=== PATIENT | male | born 1945 | race Caucasian/White ===

== ENCOUNTER → 2024-04-03 09:19 | Outpatient (REF) | payer MEDICARE, SELFPAY ==
--- NOTE | 2024-04-01 10:13 | WATCHMAN ---
Watchman
Wathcman Procedure
Referred by:: Tanisha
Date of Referral:: 03/20/24
[id number] Score
Age in Years (65=0, 65-74=1, >/=75=2): > or = 75
Sex (Female=+1): Male
Congestive Heart Failure History (Yes=+1): No
Hypertension History (Yes=+1): Yes
Stroke/TIA/Thromboembolism History (Yes=+2): Yes
Vascular Disease History (Yes=+1): No
Diabetes Mellitus (Yes=+1): No
Score: 5
Anticoagulation Recommendations: Recommend anticoagulation (as validated in nonvalvular fib)
HASBLED Score
Hypertenstion (uncontrolled >160mmHG systolic): No
Renal disease (dialysis, transplant, Cr >2.26mg/dL or >200umol/L): No
Liver disease (cirrhosis or bilirubin >2x normal w/ AST/ALT/AP >3x normal: No
Stroke history: Yes
Prior major bleeding or predisposition to bleeding: Yes
Labile INR(unsable/high INRs,time in therapeutic range <60%): No
Age >65: Yes
Medication usage predisposing to bleeding(ASA, NSAIDS): No
Alcohol use (>/= 8 drinks/week): No
Score: 3
Risk: Alternatives to anticoagulation should be considered: Patient is at high risk for major bleeding
Electrocardiogram
Interpretation: abnormal
Heart Rate: 73
Rate: normal
Rhythm: sinus
Interval: first degree heart block
Physician Visits
Ice Skating Teacher:: Tanisha
Date of Visit:: 02/29/24
Primary Salvage Inspector Wood Parts:: Tanisha
PCP:: Anna
Oral Anticoagulation
Post procedure anticoagulation plan:: 3 month post OAC and 3 month CHARLOTTE on full dose NOAC
Plan
Plan:: 03/20/2024: Consult received from Dr. Garay.
03/24/2024: Left voicemail for patient. with contact information. He will need BMP prior to CT watchman.
03/28/2024The Lab order BASIC METABOLIC PANEL W/EGFR has been placed. Patient instructed to have blood work drawn and will call once resulted to scheduled CT scan. patient ask that his become the primary contact.
:Called and spoke to patient's . GFR 87. Scheduled CT watchman for 04/03/2024 at 0930. Reviewed instructions. Allowed for and answered questions.
== END ==
LOC: RAD 09:19
PROVIDERS: ATTENDING PHYSICIAN Internal Medicine Cardiovascular Disease; FAMILY PHYSICIAN Family Medicine
DX: I48.0 Paroxysmal atrial fibrillation (principal); I48.91 Unspecified atrial fibrillation
CPT/HCPCS: 75572; Q9967

== ENCOUNTER 2024-04-29 11:57 | Inpatient (IN) | payer MEDICARE, SELFPAY ==
[2024-04-18 11:58] VITALS: BMI 35.3
[2024-04-29] VITALS (15 sets, daily range): BP systolic 101–160; BP diastolic 65–106; BMI 36.5
[2024-04-29 08:30] LABS: ACT-LR - POC 256 Seconds (116-155)
--- NOTE | 2024-04-29 09:23 | WATCHMAN.MD ---
Watchman Implant
-
ELECTROPHYSIOLOGY/INTERVENTIONAL PROCEDURE REPORT
Date of Procedure: April 29, 2024
Assisting Physician: Jassi Garay
PROCEDURES:
1. Left atrial appendage occlusion device using 20 mm WATCHMAN FLX device
2. Intracardiac echocardiography
3. Ultrasound-guided right common femoral venous access
INDICATION: Paroxysmal atrial fibrillation warranting long-term full anticoagulation in the setting of high risk for bleeding,,[id number] 5, HASBLED 3
ACCESS: Right common femoral vein, 16Fr sheath and 9Fr. sheaths, under US guidance using micropunture kit.
HEMODYNAMICS : (mmHg)
LA Pressure: 16
PROCEDURE REPORT:
After informed consent and patient safety 'Timeout' the patient was intubated and sedated by the anesthesiology service. Under ultrasound guidance, the right femoral vein was accessed by Dr. Jassi Garay twice for transseptal puncture and
intracardiac ultrasound, respectively. Concomitant transesophageal echocardiogram was performed by Dr. Yordan La
Baseline intracardiac ultrasound demonstrated no pericardial effusion and baseline CHARLOTTE images revealed a trace pericardial effusion.
After ruling out a left atrial appendage thrombus, the patient was heparinized for an ACT between 350-400 seconds and under CHARLOTTE and intracardiac ultrasound guidance transseptal puncture was performed by Dr. Talisha Schwartz using the [employer]
Bayside trans-septal system in a inferior position on the inferior-superior axis and a anterior position on the anterior-posterior axis. Lleft atrial pressure was 16 millimeters mercury.
Once transseptal puncture was performed over the Bayside wire parked in the body of the left atrium, the watchman access double curve sheath was advanced into the left atrium. A 6 Ukrainian pigtail catheter was placed into the left atrial appendage and
an appendage gram was performed using intravenous contrast dye demonstrating a chicken type anatomy that was suitable likely for a 20 mm WATCHMAN FLX device.
After appropriately prepping the device, Dr. Talisha Schwartz successfully deployed a 20 mm WATCHMAN FLX device. Device showed excellent positioning with no leaks post device deployment. 10 to 20 % compression was noted in the device after deployment.
A 'tug-test' was performed demonstrating stability of the device. Given PASS criteria were met, the device was then released successfully by Dr. Talisha Schwartz.
Post procedure, CHARLOTTE imaging demonstrated no new or worse pericardial effusion. Sheaths and catheters were removed from the left atrium and heparin was reversed using protamine. Catheters removed from the femoral veins with [id number] suture
applied. The patient tolerated the procedure well.
Closure Device: Figure of 8 suture
CONCLUSIONS
1. Successful deployment of 20 mm WATCHMAN FLX device under CHARLOTTE and ICE guidance.
RECOMMENDATIONS
1. Plan for daily Eliquis 5 mg twice daily along with daily baby aspirin 81 mg for the next 3 months.
2. 90-day CHARLOTTE post procedure to assess stability of device and rule out any soledad-device leaks.
3. Figure of 8 suture removal prior to discharge.
Maintain current anticoagulation regimen of Eliquis 5 mg twice daily as well as aspirin 81 mg daily after watchman implantation and then reassess at the 3-month CHARLOTTE. If at that point the device is well-seated ,no significant leaks and no device
related thrombus is observed we can stop Eliquis and maintain aspirin 81 mg daily
At post procedure CHARLOTTE leaks > 5mm are significant and require chronic full anticoagulation or consideration for leak closure. Soledad-device leaks between 3 and 5 mm may also carry an increased risk. These patients will need individualized risk
assessment and discussion with Watchman team. Leaks < 3 mm are generally considered non-significant. With leak of any size suggestion is to check CHARLOTTE 12 mo out from implant.
Talisha Schwartz MD, [facility], [facility]
--- NOTE | 2024-04-29 09:50 | ITS.CL.PN ---
Parts Identification Technician - Procedure Note
Procedure
Procedure Note:
Watchman implantation report
Date: April 30, 2024
History: Prior history of thromboembolic and bleeding events with history of atrial fibrillation
Implant report:
sanding line operator device implanter: Dr. Schwartz
Transseptal resaw machine operator: Tanisha
After informed consent and patient safety timeout the patient was sedated by the anesthesiology service. This was performed under general anesthesia. Direct ultrasound guidance in the right femoral vein with an 8 Italian and 9 Italian sheath.
Intracardiac ultrasound was brought to the right atrium for imaging for transseptal there was no pericardial effusion pre and post procedure. CHARLOTTE was performed concomitantly to assess compression of the device.
I obtained femoral venous access and brought over a pigtail wire the watchman sheath into the right atrium which was lowered into the interatrial fossa and a low anterior crossing was performed into the left atrium over the RF wire and watchman
sheath. The pigtail wire was exchanged for a pigtail catheter which was placed into the left atrial appendage and dye injection was performed. This demonstrated an 11 to 12 mm ostium. As such we selected a 20 mm device which was delivered with 10
to 20% compression meeting Pass criteria with the device being delivered by Dr. Schwartz. Groin access and transseptal puncture was performed by myself. Ostial position, tug test did not move the device, 10 to 20% compression and dye injection
demonstrating no leak and as such meeting Pass criteria the device was delivered and sheaths and catheters were withdrawn into the right atrium. Heparin was given for an ACT greater than 300 seconds and 30 mg of protamine was given at the end of
the procedure. Patient tolerated the procedure well and a [id number] suture to the right femoral vein.
Recommendations:
20 mm Watchman device.
3 months of Eliquis 5 mg p.o. twice daily and then 3-month CHARLOTTE.
Consider same-day discharge
--- NOTE | 2024-04-29 13:08 | W.DS.TRANS ---
DC Summary - Planner Internship
-
Discharge Instructions:
Discharge Diagnosis/Procedures AFib, s/p watchman device implant
Driving Restrictions No driving for 24 hours
Others Tests 3 month follow up CHARLOTTE has been scheduled for you
at [facility] on 07/31/2024 with
Ariel. You will receive a call the day before
with arrival time. Pre-admission testing has
been scheduled for you on 07/24/2024 at 10am -
ground floor of the [facility].
Instructions:
Stand-Alone Forms: DC Instructions- Cath/EP Lab
Changes to Home Medications: No
Discharge Medications:
DC Medications w/original date entered in [employer]
nitroglycerin 0.4 mg sublingual tablet 0.4 mg sublingual [id number] PRN chest pain ##25 06/30/16
metoprolol succinate 25 mg tablet,extended release 24 hr 25 mg PO DAILY Blood pressure ##0 10/13/17
tamsulosin 0.4 mg capsule 0.4 mg PO HS Urinary issue 01/23/18
apixaban 5 mg tablet (Eliquis) 5 mg PO BID ##1 11/25/19
aspirin 81 mg tablet,delayed release 81 mg PO DAILY 11/25/19
losartan 50 mg tablet 50 mg PO DAILY #90 tabs 11/25/19
hydrochlorothiazide 12.5 mg tablet 12.5 mg PO DAILY 04/16/24
multivitamin 1 tab PO DAILY 04/16/24
omega 1-vmc-wmu-fish oil 1,000 mg (120 mg-180 mg) capsule (Fish Oil) 2 cap PO DAILY 04/16/24
atorvastatin 40 mg tablet 40 mg PO HS 04/29/24
Home Medication Changes
Pending Results: No
--- NOTE | 2024-04-29 13:13 | W.PN.UPDATE ---
Update Note
Progress Note Update
Pt seen post Watchman device implant. Right groin site without ht/bleeding, non tender. OOB ambulating. Post EKG NSR 75 w/1st deg AVB as before, no acute changes. Resume eliquis tonight at usual time, continue other meds as before. CHARLOTTE in 3 months
as scheduled. Followup at [facility] office w/BILLING DEPARTMENT SUPERVISOR as scheduled. Home today if groin site/tele remain stable.
== END 2024-04-29 14:00 | disposition home or self-care (01) | DRG 274 ==
LOC: CATH-IN 11:57
PROVIDERS: Internal Medicine Interventional Cardiology; ADMITTING PHYSICIAN Internal Medicine Cardiovascular Disease; FAMILY PHYSICIAN Family Medicine
PROC: 02L73DK Occlusion of Left Atrial Appendage with Intraluminal Device, Percutaneous Approach (ICD-10-PCS; 2024-04-29)
PROC: B24CZZ4 Ultrasonography of Pericardium, Transesophageal (ICD-10-PCS; 2024-04-29)
DX: I48.0 Paroxysmal atrial fibrillation (principal); I69.351 Hemiplegia and hemiparesis following cerebral infarction affecting right dominant side; I25.10 Atherosclerotic heart disease of native coronary artery without angina pectoris; I10 Essential (primary) hypertension; G47.33 Obstructive sleep apnea (adult) (pediatric); E78.5 Hyperlipidemia, unspecified; K21.9 Gastro-esophageal reflux disease without esophagitis; N40.0 Benign prostatic hyperplasia without lower urinary tract symptoms; I69.398 Other sequelae of cerebral infarction; R26.89 Other abnormalities of gait and mobility; H35.30 Unspecified macular degeneration; E66.9 Obesity, unspecified; Z68.35 Body mass index [BMI] 35.0-35.9, adult; Z95.5 Presence of coronary angioplasty implant and graft; Z96.643 Presence of artificial hip joint, bilateral; Z87.891 Personal history of nicotine dependence; Z79.01 Long term (current) use of anticoagulants; Z79.82 Long term (current) use of aspirin; Z79.899 Other long term (current) drug therapy
CPT/HCPCS: 33340; 85347; 86900; 86901; 93005; 93355; C1759; C1892; C1894

== ENCOUNTER → 2024-05-07 10:03 | Outpatient (REF) | payer MEDICARE, SELFPAY | LOC: RAD 10:03 | PROVIDERS: ATTENDING PHYSICIAN Internal Medicine Cardiovascular Disease; FAMILY PHYSICIAN Family Medicine | DX: R10.31 Right lower quadrant pain (principal) | CPT/HCPCS: 93926 ==

== ENCOUNTER 2024-05-12 20:37 | Inpatient (IN) | payer MEDICARE, SELFPAY ==
[2024-05-12] VITALS (7 sets, daily range): BP systolic 121–150; BP diastolic 64–109; BMI 35.0
[2024-05-12 16:20] LABS: % Basophils 0.6 % (0-2); % Eosinophils 1.3 % (0-6); % Immature Granulocytes 0.6 % (0-0.5); % Lymphocytes 11.1 % (20.5-51.1); % Monocytes 12.9 % (1.7-9.3); % Neutrophils 73.5 % (42.2-75.2); Absolute Eosinophils 0.1 10^3/uL (0-0.7); Absolute Lymphocytes 0.8 10^3/uL (1.2-3.4); Absolute Monocytes 0.9 10^3/uL (0.1-0.6); Absolute Neutrophils 5.3 10^3/uL (1.4-6.5); Mean Corp Hgb Conc. 33.3 g/dL (33.0-37.0); Mean Corpuscular Hgb 32.7 pg (27.0-31.0); Mean Platelet Volume 9.5 fL (7.4-10.4); Nucleated Red Blood Cells % 0 % (-); Platelet Count 221 10^3/uL (130-400); Red Cell Dist. Width 13.9 % (11.5-14.5); White Blood Cell Count 7.2 10^3/uL (4.8-10.8)
[2024-05-12 16:33] LABS: ALT (SGPT) 28 U/L (0-50); AST (SGOT) 33 U/L (17-59); Albumin 4.7 g/dl (3.5-5.0); Alkaline Phosphatase 78 U/L (38-126); Blood Urea Nitrogen 31 mg/dl (9-20); Calcium 9.6 mg/dl (8.4-10.2); Carbon Dioxide 28 mmol/L (22-30); Chloride 97 mmol/L (98-107); Glucose 106 mg/dl (70-99); Potassium 4.1 mmol/L (3.5-5.1); Sodium 136 mmol/L (135-145); Total Bilirubin 0.8 mg/dl (0.2-1.3); Total Protein 7.3 g/dl (6.3-8.2); eGFR > 60.00
--- NOTE | 2024-05-12 19:33 | ED.GENMED ---
History of Present Illness
General
Chief Complaint: Skin Problem
Source: patient and spouse
Exam Limitations: none
Time Seen by Provider: 05/12/24 18:40
History of Present Illness
History of Present Illness:
Patient with a Watchman procedure done April 29. 3 to 4 days ago started complaining of pain in the right groin. Was seen by cardiology last week. Had an ultrasound that was unremarkable. has noticed a rash to the right side the last 2
to 3 days. 2 days ago started having confusion. Tried to pour coffee into a creamer cup was confused at the store. Was answering questions inappropriately. Seems this is improved slightly in the last 2 days. Patient was unaware of these issues
Past History
Past History
ED Past Medical History: CVA, GERD, HTN, Hypercholesterolemia, NC ( X 2) and Other (UTI,)
ED Past Surgical History: Appendectomy and Cardiac (Stent X 1)
Social History
Tobacco: Former smoker
Alcohol: None
Personal:
Living: with family
Employment: Employed
Review of Systems
Review of Systems
All Other Systems: Not applicable
Constitutional: Denies fever
Cardiac: Reports no symptoms
ABD/GI: Reports no symptoms
Phy Exam
Physical Exam
Physical Exam:
GENERAL: Alert and oriented x 2 in no apparent distress
EYE: Orbits normal.
NECK: Supple, nontender. No Kernig's or Brezinski
ENT: Pharynx without erythema
CARDIAC: Regular rate and rhythm without any obvious murmurs.
LUNGS: Clear breath sounds,normal
ABDOMEN: Soft, without focal tenderness or distention. Elevated BMI
NEUROLOGICAL: Alert and oriented , grossly non-focal
SKIN: Warm and dry, shingles rash right groin rating to the right flank and back. Areas of ecchymosis to the right groin fine maculopapular rash to the upper left chest wall
MUSCULOSKELETAL: No edema,no deformity.Good color
PSYCH: Normal and appropriate interaction.
Course
Orders/Labs/Results
Orders:
Orders
05/12/24 15:54
Electrocardiogram (*1) Urgent
Reason for Study: Fatigue / Weakness
EKG- Treatment ONCE
05/12/24 16:10
Complete Blood Count/With Diff Urgent
Comprehensive Metabolic Panel Urgent
05/12/24 18:54
CT Head W/o Iv Contrast Urgent
Comment:
Reason For Exam: Confusion/anticoagulated
IV Insert/Care/Rem.- Treatment PRN
05/12/24 20:04
Acyclovir [Zovirax Injection] 1,000 mg 0.9% Sodium Chloride 250 ml [Nss] 250 ml IV NOW
05/12/24 20:07
Admit/Transfer Patient As Directed
Co-Sign Provider:
Level of Care: Inpatient admission
Assign to:: Medical/Surgical
Physician / Group: hospitalist
Diagnosis: disseminated zoster
Reason for Hospitalization: disseminated zoster
Expected length of stay greater than two midnights?: Yes
ELOS- Estimated Length of Stay in days: 2
I certify the patient meets the requirements for IP care: Yes
05/12/24 20:08
PRN Pain Medication Management As Directed
May give lesser potent ordered pain med per pt: Yes
preference::
Protocol:: Medication orders for pain may be administered in a
manner that supports deferring to patient preference
when the pt is:
- Requesting an ordered lesser potent pain medication.
Least to most potent pain medications are defined
as: acetaminophen < NSAID < tramadol < opioids
(morphine, oxycodone, hydromorphone).
- Requesting a lesser dose of the same medication IF
ORDERED.
- Requesting a less intrusive route of administration
if both routes are prescribed by the provider (PO <
IV).
05/12/24 20:09
Code Status As Directed
Resuscitation Status: Full Code
Abnormal Lab Results
05/12/24
16:10
MCV 98.0 H fL
(80.0-94.0)
MCH 32.7 H pg
(27.0-31.0)
Absolute Lymphs (auto) 0.8 L 10^3/uL
(1.2-3.4)
Absolute Monos (auto) 0.9 H 10^3/uL
(0.1-0.6)
Immature Gran % 0.6 H %
(0-0.5)
Lymphocytes % 11.1 L %
(20.5-51.1)
Monocytes % 12.9 H %
(1.7-9.3)
Chloride 97 L mmol/L
(98-107)
BUN 31 H mg/dl
(9-20)
Glucose 106 H mg/dl
(70-99)
05/12/24 16:10
05/12/24 16:10
Vital Signs
Initial and Last Documented VS:
Initial Vital Signs
Temp Pulse Resp BP Pulse Ox
98.3 F 88 16 135/78 98
05/12/24 15:50 05/12/24 15:50 05/12/24 15:50 05/12/24 15:50 05/12/24 15:50
Last Documented Vital Signs
Temp Pulse Resp BP Pulse Ox
99.0 F 86 17 130/78 89
05/12/24 18:20 05/12/24 22:00 05/12/24 22:00 05/12/24 22:00 05/12/24 22:00
*Radiology
Radiology exam reviewed: radiology read reviewed (neg)
*Critical Care Note
Total Time (30-74mins, 75-104mins- exclusive of procedures): Not Applicable
ED Attending Note
-
Portions of this chart may have been created with voice recognition software.� Occasional wrong word or��sound alike� substitutions may have occurred due to the inherent limitations of voice recognition software.
Discharge Plan
Departure
Patient Disposition: Admit
Date of Disposition: 05/12/24
Time of Disposition: 19:40
Presentation/result/management discussed w/ accepting MD/DO: Hospitalist
Discharge Problem:
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
Interventions
Interventions:
*Risk Screen - Suicide Last Done: 05/12/24 15:50
*Neglect/Abuse Screening Last Done: 05/12/24 15:50
ED-Skin Assessment Last Done: 05/12/24 21:02
--- NOTE | 2024-05-12 19:58 | HPS.HSE ---
Family Physician
-
Family Physician: Johnnie Castillo
Chief Complaint
-
Rash and confusion
History of Present Illness
This is a 78-year-old male with past medical history significant for CAD status post stenting, proximal atrial fibrillation on anticoagulation was recently status post a Watchman procedure April 29, sleep apnea not on CPAP, hyperlipidemia, BPH
and GERD presenting to the emergency department with confusion and a rash.
Patient was doing well after his Watchman procedure on April 29. On Sunday 3 days ago spouse noted confusion. Patient was unable to manage of pouring his drink. He was confused about where he was. He was agitated. He was slightly combative
with spouse. He was not febrile. He had no cough or chills. Spouse reported that the confusion continued until Sunday. He did appear to start improving since Sunday. The patient reported that he started having a rash in the groin/inguinal
area as well as stated lower abdomen on the right side on Sunday. The rash has continued to spread since then. He has remained without fevers. His confusion has improved slightly but still has not returned to baseline. They denied any urinary
symptoms. Denies any new medications.
In the emergency department he was afebrile, blood pressure was 136/100 with a pulse of 81 satting 93%. CBC was unremarkable. Electrolytes BUN and creatinine were also unremarkable. ECG showed a normal sinus rhythm at a rate of 85. CT of the
head shows no acute intracranial process.
Medical History
Past Medical History
Past Medical History: Reports Arrhythmia (Paroxysmal atrial fibrillation on anticoagulation, status post watchman on April 29, 2024), CAD (Status post stent), GERD, HTN, Hypercholesterolemia and Other (Morbid obesity, GIOVANNA not compliant with CPAP)
Past Surgical History: Reports Appendectomy, Orthopedic (Right total hip arthroplasty, right L4-5, L5-S1 IAF JI, left hip arthroplasty), Tonsilectomy and Other (Hernia repair)
Social History
Tobacco: Non-smoker
Alcohol: None
Drug: None
Personal:
Living: With Family
Employment: Retired
Family History
Family History: Not pertinent
Allergies / Home Medications
Allergies reflects when Allergies were last updated in [employer].
Home Medications with original date entered in [employer]
Allergy/Medication List:
Allergies
Allergy/AdvReac Type Severity Reaction Status Date / Time
procaine Allergy Hives A Verified 05/12/24 15:54
TEENAGER
Home Medications
nitroglycerin 0.4 mg sublingual tablet 0.4 mg sublingual [id number] PRN chest pain ##25 06/30/16
metoprolol succinate 25 mg tablet,extended release 24 hr 25 mg PO DAILY Blood pressure ##0 10/13/17
tamsulosin 0.4 mg capsule 0.4 mg PO HS Urinary issue 01/23/18
apixaban 5 mg tablet (Eliquis) 5 mg PO BID ##1 11/25/19
aspirin 81 mg tablet,delayed release 81 mg PO DAILY 11/25/19
losartan 50 mg tablet 50 mg PO DAILY #90 tabs 11/25/19
hydrochlorothiazide 12.5 mg tablet 12.5 mg PO DAILY 04/16/24
multivitamin 1 tab PO DAILY 04/16/24
omega 4-mof-bno-fish oil 1,000 mg (120 mg-180 mg) capsule (Fish Oil) 2 cap PO DAILY 04/16/24
atorvastatin 40 mg tablet 40 mg PO HS 04/29/24
Review of Systems
-
History Source: Patient and Family
Constitutional: Reports No Symptoms
EENT: Reports No Symptoms
Respiratory: Reports No Symptoms
Cardiac: Reports No Symptoms
Abdomen/GI: Reports No Symptoms
: Reports No Symptoms
Musculoskeletal: Reports No Symptoms
Skin: Reports Rash
Neurological: Reports No Symptoms
Endocrine: Reports No Symptoms
Hematologic/Lymphatic: Reports No Symptoms
Psych: Reports No Symptoms
Physical Exam
Vital Signs
Vital Signs
Temp Pulse Resp BP Pulse Ox
99.0 F 81 22 136/109 95
05/12/24 18:20 05/12/24 19:00 05/12/24 19:00 05/12/24 19:00 05/12/24 19:00
Physical Exam
General: Well Developed, Well Nourished and No Apparent Distress
HEENT: NormoCephalic, Anicteric, Moist mucous membranes, Atraumatic and PERRLA
Respiratory: Clear
Cardiac: S1/S2 and Regular Rhythm
Breast: Deferred by me
GI: Soft, Non Tender, Normal Bowel Sounds, Distended and No Hernias
Rectal: Deferred by Provider
Genito-urinary: Deferred by me
Musculoskeletal: No Clubbing, No Cyanosis and No Edema
Skin: Warm and Rash (varicella rash with vessicles on erythematous base in a dermatomal distribution on the lower abdomen/pelvis on the right side moving to the flank and back. Not currently tender. )
Neuro: AO x 3, No Motor Deficits and Nonfocal/grossly intact
Hematologic/Lymphatic: No Lymphadenopathy
Psych: Calm
Laboratory Results
-
05/12/24 16:10
05/12/24 16:10
Laboratory Results
Total Bilirubin 0.8 mg/dl (0.2-1.3) 05/12/24 16:10
AST 33 U/L (17-59) 05/12/24 16:10
ALT 28 U/L (0-50) 05/12/24 16:10
Alkaline Phosphatase 78 U/L (38-126) 05/12/24 16:10
Troponin I Cancelled 05/12/24 19:23
Data Reviewed
-
CT Scan: Report Reviewed by me
Medical Tests (Nuc Med, Echo, EKG etc): Image Personally Visualized and interpreted
Lab Data: Labs Reviewed by me
Old Records: Reviewed
Impression/Plan
-
IMPRESSION:
78-year-old history of CAD, hypertension, proximal atrial fibrillation was recently status post Watchman procedure presents to the emergency department in the setting of confusion and development of dermatomal rash consistent with varicella-zoster.
Patient is hemodynamically stable. Continues to have mild confusion and there is concern remains for disseminated zoster. Labs unremarkable and patient is otherwise well-appearing. CT of the head is negative. UA pending.
PLAN:
1. Varicella Zoster - Disseminated zoster
- admit to med/surg
- renal function normal, will continue with acyclovir 10mg/kg q8h
- rash is very classic, no indication for pcr
- on eliquis, would hold off on LP at this time, hold eliquis tonight and am pending repeat eval for possible LP
- ID consulted and aware.
2. PAFIB -
- s/p watchman
- continue metoprolol succinate daily
3. CAD
- aspirin daily
- statin
- bp control with losartan
4. GIOVANNA
- no cpap, oxygen hs
continue tamsulosin for bph, u/a pending
DVT PPX - on apixaban
Code status - Full Code (was DNR per living will but changed mind)
[2024-05-12] MEDS: ZOVIRAX INJECTION 270 MG IV (20:40)
[2024-05-13] VITALS: BP 129/71
[2024-05-13] MEDS: FLOMAX 0.4 MG PO ×2 (00:07→20:28)
[2024-05-13] MEDS: LIPITOR 40 MG PO ×2 (00:07→20:28)
--- NOTE | 2024-05-13 01:53 | PTCARENOTE ---
Pt transferred to on 05/12/24 around 23:30. Pt AAOx3 but forgetful, Pt took few steps from stretcher to bed with SPC. PT on airborne precautions and placed on bed alarm. Pt is restless, VSS and pt oriented to room. Pt stated he was hungry and ate
100% of lunch box. Safety measures in place, call moran within reach.
[2024-05-13] MEDS: ZOVIRAX INJECTION 270 MG IV ×3 (03:24→20:27)
[2024-05-13 07:00] VITALS: BP 129/75
[2024-05-13 08:08] LABS: Hematocrit 41.4 % (39.0-52.0); Mean Corp Hgb Conc. 33.8 g/dL (33.0-37.0); Mean Corpuscular Volume 97.6 fL (80.0-94.0); Mean Platelet Volume 10.1 fL (7.4-10.4); Platelet Count 212 10^3/uL (130-400); Red Blood Cell Count 4.24 10^6/uL (4.70-6.10); Red Cell Dist. Width 13.9 % (11.5-14.5); White Blood Cell Count 6.4 10^3/uL (4.8-10.8)
[2024-05-13 08:40] LABS: Blood Urea Nitrogen 26 mg/dl (9-20); Calcium 8.4 mg/dl (8.4-10.2); Carbon Dioxide 27 mmol/L (22-30); Chloride 100 mmol/L (98-107); Estimated Creatinine Clearance 88 ml/min; Glucose 118 mg/dl (70-99); Potassium 3.7 mmol/L (3.5-5.1); Sodium 132 mmol/L (135-145); eGFR > 60.00
[2024-05-13] MEDS: TOPROL XL 25 MG PO (09:38)
[2024-05-13] MEDS: ASPIR LOW (ENTERIC COATED) 81 MG PO (09:39)
[2024-05-13] MEDS: ORETIC 12.5 MG PO (09:41)
[2024-05-13] MEDS: COZAAR 50 MG PO (09:41)
--- NOTE | 2024-05-13 09:49 | W.PN.HOSP.TC ---
Today's Communication/Plan
-
mri brain w/o contrast
nih scale shift change
Continue to anti-viral therapy
Assessment / Plan
Assessment / Plan
1. Varicella Zoster
- admit to med/surg
- renal function normal, will continue with acyclovir 10mg/kg q8h
- On exam on right lower abdomen tracking along T11-T12 dermatomal region
- ID consulted and aware.
2. Parox afib
- s/p watchman
- continue metoprolol succinate daily
3. TME
-Possibly with active viral infection
-MRI brain without contrast ordered
-CT head without any acute abnormality
-Avoid any sedating medication
3. CAD
-Continue aspirin/statin
4. GIOVANNA
- no cpap, oxygen hs
5. BPH
- maintain on flomax
6. History of CVA
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
DVT PPX - on apixaban
Total time spent : 52 misn
Anticipated Discharge: 24 - 48 hours
Subjective/Interval History
-
Date of Service: May 13, 2024
Resting comfortably in bed
Afebrile overnight
Objective Data
-
Labs:
Laboratory Results
05/13/24
07:33
WBC 6.4
Hgb 14.0
Hct 41.4
Plt Count 212
Sodium 132 L
Potassium 3.7
Chloride 100
Carbon Dioxide 27
BUN 26 H
Creatinine 0.8
Glucose 118 H
Calcium 8.4
Vital Signs:
Vital Signs
Temp Pulse Resp BP Pulse Ox
99.7 F 79 20 129/75 94
05/13/24 07:00 05/13/24 07:00 05/13/24 07:00 05/13/24 07:00 05/13/24 07:00
I&O
05/12/24 05/13/24 05/14/24
06:59 06:59 06:59
Intake Total 480 / 480
Output Total 400 / 400
Balance 80 / 80
Review of Systems
-
Respiratory: Reports No Symptoms
Cardiac: Reports No Symptoms
Abdomen/GI: Reports No Symptoms
Physical Exam
-
General: No Apparent Distress and Comfortable
HEENT: Negative Oxygen
Respiratory: Clear to Auscultation
Cardiac: Regular Rhythm and S1/S2; Negative Murmur or Rub
GI: Soft, Nontender and Other (Right lower abdominal quadrant vesicular rash extending to midline)
Musculoskeletal: No Edema
Neuro: Awake, Alert, Oriented, No Motor Deficits and Nonfocal/Grossly Intact
Psych: Calm
[2024-05-13] MEDS: FLUSH (NSS) 1 FLUSH IV (12:35)
--- NOTE | 2024-05-13 14:05 | CON.ID ---
Consultation
-
Date/Time Consultation Requested: May 12, 2024 2316
Date/Time Consultation Performed: May 13, 2024 1400
Requesting Provider: Dr. Wayne Saavedra
Performing Provider: Dr. Annmarie Rebollar
Reason for Consultation: Disseminated Zoster
Chief Complaint / Past History
Chief Complaint
Confusion
History of Present Illness
History obtained from the patient as well as from his at bedside. He is a 78-year-old male with history of CVA, CAD, atrial fibrillation status post recent Watchman device placement on April 29, 2024 who presented to the ER last night due
to confusion and rash. Per , patient was very confused on Sunday. He was not oriented to place or time. He was somewhat agitated. On Sunday lesions noted on his right groin. Per he had bruises from the right groin to his back after
the Watchman procedure. The rash is on the same location. She also noted new spots on his upper chest. No fever. In ED, patient was too agitated for lumbar puncture. He was started on empiric IV acyclovir for disseminated zoster. Per
patient was confused this morning. However his mental status has improved this afternoon. Patient denies headaches. No neck stiffness. No fever or chills. Patient is not up-to-date with the shingles vaccine.
Past History
Additional Past Medical History:
CVA with right side weakness
HTN
CAD s/p stent
ISchemic cardiomyopathy
Afib s/p Watchman device 04/29/24
BPH
HLD
OA
Macular generation
GIOVANNA noncompliant with CPAP
Nephrolithiasis
Additional Past Surgical History:
R WALTER
L WALTER
Appendectomy
Spine fusion
Hernia repair
Allergy History:
procaine Allergy (Verified 05/12/24 15:54)
Hives A TEENAGER
Medications Reviewed: Yes
Current Antibiotics:
Acyclovir 1g IV q8
Social History
Tobacco: Non-Smoker
Alcohol: None
Drug: None
Personal:
Living: With Family
Family History
Family History: Not Pertinent
Review of Systems
Review of Systems
General: Negative Fever, Chills or Change in Appetite
HEENT: Negative Headache or Pharyngitis
Cardiovascular: Negative Chest Pain
Respiratory: Negative Dyspnea or Cough
Gasteroenterology: Negative Nausea, Vomiting or Diarrhea
Genital / Urological: Negative Dysuria
Endocrine: Weakness
Skin / Hair / Nails: Rash
Neurological: Negative Dizziness
All systems: All other systems were reviewed and were negative
Vital Signs
Temp Pulse Resp BP Pulse Ox
99.7 F 79 20 129/75 94
05/13/24 07:00 05/13/24 07:00 05/13/24 07:00 05/13/24 07:00 05/13/24 07:00
Physical Exam
Physical Exam
Constitutional: No Acute Distress, Comfortable and Obese
Eyes: No Conjunctival Hemorrhage and Sclera Anicteric
Cardiovascular: Regular Rate and S1/S2
Pulmonary: Clear
Gastrointestinal: Soft, Non Tender, Non Distended and Normal Bowel Sounds
Extremities: Negative Edema
Skin: Rash (Clusters of vesicular lesions from lower right midabdomen across (including groin) to lower black. Several scattered papules across chest, left shoulder, and left neck. )
05/13/24 Brain MRI: No acute intracranial abnormality. Chronic findings, as detailed above.
Lab / Diagnostic Study Results
05/13/24 07:33
05/13/24 07:33
Abs Immat Gran (auto) 0.0 10^3/uL (0-0.05) 05/12/24 16:10
Absolute Neuts (auto) 5.3 10^3/uL (1.4-6.5) 05/12/24 16:10
Absolute Lymphs (auto) 0.8 10^3/uL (1.2-3.4) L 05/12/24 16:10
Absolute Monos (auto) 0.9 10^3/uL (0.1-0.6) H 05/12/24 16:10
Absolute Basos (auto) 0.0 10^3/uL (0-0.2) 05/12/24 16:10
Immature Gran % 0.6 % (0-0.5) H 05/12/24 16:10
Neutrophils % 73.5 % (42.2-75.2) 05/12/24 16:10
Lymphocytes % 11.1 % (20.5-51.1) L 05/12/24 16:10
Monocytes % 12.9 % (1.7-9.3) H 05/12/24 16:10
Eosinophils % 1.3 % (0-6) 05/12/24 16:10
Basophils % 0.6 % (0-2) 05/12/24 16:10
Assessment / Plan
# Disseminated herpes zoster: Right T12/L1 dermatome with lesions on upper chest, left shoulder
# Encephalopathy improving
# Afib s/p Watchman, on Eliquis
- Unvaccinated against Zoster.
- Eliquis on hold. Recommend LP to rule out VZV encephalitis
- Continue IV acyclovir. If no VZV encephalitis ruled out, eventual transition to po antiviral.
- Continue airborne isolation.
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
CVA with right side weakness
HTN
CAD s/p stent
ISchemic cardiomyopathy
Afib s/p Watchman device 04/29/24
BPH
HLD
OA
Macular generation
GIOVANNA noncompliant with CPAP
Nephrolithiasis
Care Review
Plan reviewed with: Physician (Dr. Mark Choi)
[2024-05-13 15:00] VITALS: BP 138/84
--- NOTE | 2024-05-13 15:47 | CM ---
CM reviewed chart, patient on airborne precautions. Patient seen bedside, initial assessment completed. Patient resides with his in a split level home, no steps to enter. Patient has a cane if needed, denies VN or SNF history. Patient PCP
Johnnie Castillo, pharmacy [facility], confirms prescription coverage. CM will continue to follow for all discharge planning needs.
Plan; home with likely, watch for VN needs.
[2024-05-13 16:15] VITALS: BP 128/64; BP_SYST 81
[2024-05-13 17:36] LABS: Spinal Fluid Glucose 70 mg/dl (40-70); Spinal Fluid Protein 98 mg/dl (12-60)
[2024-05-13 17:48] LABS: CSF Clarity Clear; CSF Color Colorless
[2024-05-13 17:54] LABS: Red Cell Count/CSF 19 mm^3; White Cell Count/CSF 50 mm^3 (0-5)
[2024-05-13 17:59] LABS: CSF Tube # 4
[2024-05-13 18:10] VITALS: BP 125/82
[2024-05-13 18:33] LABS: Spinal Fluid Granulocytes 2 %; Spinal Fluid Lymphocytes 83 %; Spinal Fluid Macrophages 15 %
[2024-05-13 22:02] VITALS: BP 125/82
[2024-05-14] MEDS: ZOVIRAX INJECTION 270 MG IV ×2 (03:05→11:37)
[2024-05-14 07:52] LABS: Hematocrit 43.5 % (39.0-52.0); Hemoglobin 14.8 g/dL (13.0-18.0); Mean Corpuscular Hgb 32.9 pg (27.0-31.0); Mean Corpuscular Volume 96.7 fL (80.0-94.0); Mean Platelet Volume 10.3 fL (7.4-10.4); Platelet Count 192 10^3/uL (130-400); Red Cell Dist. Width 13.7 % (11.5-14.5); White Blood Cell Count 8.8 10^3/uL (4.8-10.8)
[2024-05-14 07:53] VITALS: BP 134/73
[2024-05-14 08:12] LABS: Blood Urea Nitrogen 31 mg/dl (9-20); Calcium 8.2 mg/dl (8.4-10.2); Carbon Dioxide 24 mmol/L (22-30); Chloride 99 mmol/L (98-107); Estimated Creatinine Clearance 58 ml/min; Glucose 123 mg/dl (70-99); Potassium 3.6 mmol/L (3.5-5.1); Sodium 133 mmol/L (135-145); eGFR > 60.00
--- NOTE | 2024-05-14 08:30 | PN.CDI ---
CDI
- -
CDI:
Physician Documentation Request
Admit Date: 05/12/24 20:37
Dear Doctor Jimbo,
Please review the following and provide your response in the progress notes.
Clinical Indicators:
Laboratory Tests
05/12/24 05/13/24 05/14/24
16:10 07:33 06:54
Sodium 136 132 L 133 L
Based on the above, please clarify in the progress notes, the appropriate diagnosis, if significant, that supports the above abnormalities and additional evaluation, monitoring and/or treatment rendered:
Hyponatremia
Abnormal lab value, clinically insignificant
Other(please specify)
Use of terms such as suspected, likely, concern for, or probable (associated with a specific diagnosis that is being evaluated, monitored, or treated as if it exists) are acceptable and can be coded in the inpatient setting, when documented at the
time of discharge.
Thank you,
Luana Quan RN BSN CCDS
CDI Specialist
please contact via tiger text
Please use your independent medical judgment in providing your response.
[2024-05-14] MEDS: TOPROL XL 25 MG PO (08:51)
[2024-05-14] MEDS: ORETIC 12.5 MG PO (08:51)
[2024-05-14] MEDS: ASPIR LOW (ENTERIC COATED) 81 MG PO (08:51)
[2024-05-14] MEDS: COZAAR 50 MG PO (08:51)
--- NOTE | 2024-05-14 09:34 | PTCARENOTE ---
Patient with dry lesions and reddened skin on right groin extending around torso to mid back. Shingles lesions dry and crusty, pt denies any itchyness or pain at present. Out of bed with walker and 1 assist at present. Call moran in reach , chair
alarm maintained. Having breakfast .
--- NOTE | 2024-05-14 09:58 | W.PN.ID1 ---
Date of Service
Date of Service: May 14, 2024
Today's Communication
See below.
Assessment / Plan
# Disseminated herpes zoster: Right T12/L1 dermatome with lesions on upper chest, left shoulder
# VZV meningoencephalitis
# Encephalopathy resolving
# Afib s/p Watchman, on Eliquis
- Unvaccinated against Zoster.
- CSF 50 WBC, 83% Lymphs, protein 98.
Meningoencephalitis PCR panel: POSITIVE VZV
- Decrease acyclovir dose to 800mg IV q8h (adjusted for obesity)
- Continue IV acyclovir x 14d through 05/26, am.
- Follow renal function closely while on acyclovir.
- Continue airborne isolation.
- Unlikely HIV but patient verbally consented to testing.
- Home infusion sheet submitted to [facility].
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
CVA with right side weakness
HTN
CAD s/p stent
ISchemic cardiomyopathy
Afib s/p Watchman device 04/29/24
BPH
HLD
OA
Macular generation
GIOVANNA noncompliant with CPAP
Nephrolithiasis
Chief Complaint
-: Other (zoster)
Subjective / Review of Systems
Feels better today. Thinking clearly.
Vital Signs / Physical Exam
Vital Signs
Vital Signs
Temp Pulse Resp BP Pulse Ox
98.5 F 85 18 134/73 93
05/14/24 07:53 05/14/24 07:53 05/14/24 07:53 05/14/24 07:53 05/14/24 07:53
Physical Exam
Constitutional: No Acute Distress
Eyes: No Conjunctival Hemorrhage and Sclera Anicteric
Cardiovascular: Regular Rate and S1/S2
Pulmonary: Clear
Gastrointestinal: Soft
Genito-Urinary: Negative CVA Tenderness
Extremities: Splinter Hemorrhage
Wound: Other (Clusters of vesicular lesions from lower right midabdomen across (including groin) to lower back. Several scattered papules across chest, left shoulder, and left neck. No new lesions.)
Neurological: AO x 3; Negative Meningeal Signs
Objective Data
Lab Data
Lab Results
05/14/24 06:54
05/14/24 06:54
Estimated Creat Clear 58 ml/min 05/14/24 06:54
Total Bilirubin 0.8 mg/dl (0.2-1.3) 05/12/24 16:10
AST 33 U/L (17-59) 05/12/24 16:10
ALT 28 U/L (0-50) 05/12/24 16:10
Alkaline Phosphatase 78 U/L (38-126) 05/12/24 16:10
Most recent labs reviewed.
Micro Results:
05/13/24 16:48 Meningitis/Encephalitis Panel (PCR) - Final
Csf
05/13/24 16:48 CSF Culture - Pending
Csf Gram Stain - Preliminary
ORDERED: Meningitis Dominguez
COMMENTS: CRITICAL VALUE called to and read back verification by
[id number] on 05/14/24 at 0737 by FADY. COPY PRINTED to printer
#[id number].
Procedure Result Verified
Meningitis Panel, CSF by PCR Final 05/14/24-0604
Escherichia coli K1 Not Detected
Haemophilus influenzae Not Detected
Listeria monocytogenes Not Detected
Neisseria meningitidis Not Detected
Cytomegalovirus (CMV) Not Detected
Streptococcus agalactiae Not Detected
Streptococcus pneumoniae Not Detected
Enterovirus Not Detected
Herpes simplex virus 1 Not Detected
Herpes simplex virus 2 Not Detected
Human herpesvirus 6 Not Detected
Human parechovirus Not Detected
Varicella zoster virus DETECTED
C. neoformans/gattii Not Detected
[2024-05-14 12:45] VITALS: BP 90/50; PULSE 78
--- NOTE | 2024-05-14 15:21 | CM ---
Patient seen bedside with , discussed PT recommendation of SNF, patient will also require IV antibiotics. tearful, agreeable patient needs rehab at this time. Patient reports he just wants to , reports he did not mean that seriously and
should not have said that. reports patient is very negative and has always been like this. Update to nurse and Hospitalist. Patient agreeable to rehab, referrals placed to [facility]. CM will continue to follow for all discharge
planning needs.
Plan; SNF pending accepting facility.
[2024-05-14 15:34] VITALS: BP 113/60
--- NOTE | 2024-05-14 15:48 | W.PN.HOSP.TC ---
Today's Communication/Plan
-
IV acyclovir rx till 05/26
requires rehab placement
Assessment / Plan
Assessment / Plan
1. Disseminated Varicella Zoster
VZV encephalitis
- renal function normal, will continue with acyclovir 10mg/kg q8h
- LP showed WBC 50. CSF panel of positive for VZV.
- On skin exam blisters/rash on right lower abdomen tracking along T11-T12 dermatomal region. also some on chest.
- Decreased acyclovir dose to 800mg IV q8h by ID
- Continue IV acyclovir x 14d through 05/26, am.
- Home infusion sheet given to CM
2. Parox afib
- s/p watchman
- continue metoprolol succinate daily
3. TME - improved
-Possibly with active viral infection
-MRI brain without contrast neg.
-CT head without any acute abnormality
-Avoid any sedating medication
3. CAD
-Continue aspirin/statin
4. GIOVANNA
- no cpap, oxygen hs
5. BPH
- maintain on flomax
6. History of CVA
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
DVT PPX - on apixaban
Total time spent : 51 misn
Anticipated Discharge: Within 24 hours
Subjective/Interval History
-
Date of Service: May 14, 2024
Sitting comfortably in chair
Denies headache/photophobia
No neck stiffness
No nausea/vomiting
Afebrile overnight
No reported episodes of confusion
Objective Data
-
Labs:
Laboratory Results
05/14/24
06:54
WBC 8.8
Hgb 14.8
Hct 43.5
Plt Count 192
Sodium 133 L
Potassium 3.6
Chloride 99
Carbon Dioxide 24
BUN 31 H
Creatinine 1.2
Glucose 123 H
Calcium 8.2 L
Vital Signs:
Vital Signs
Temp Pulse Resp BP Pulse Ox
97.6 F 85 18 113/60 94
05/14/24 15:34 05/14/24 15:34 05/14/24 15:34 05/14/24 15:34 05/14/24 15:34
I&O
05/13/24 05/14/24 05/15/24
06:59 06:59 06:59
Intake Total 480 / 480 1580 / 1580
Output Total 400 / 400 600 / 600
Balance 80 / 80 980 / 980
Review of Systems
-
Respiratory: Reports No Symptoms
Cardiac: Reports No Symptoms
Abdomen/GI: Reports No Symptoms
Physical Exam
-
General: No Apparent Distress and Comfortable
HEENT: Negative Oxygen
Respiratory: Clear to Auscultation
Cardiac: Regular Rhythm and S1/S2; Negative Murmur or Rub
GI: Soft, Nontender and Other (Right lower abdominal quadrant vesicular rash extending to midline)
Musculoskeletal: No Edema
Neuro: Awake, Alert, Oriented, No Motor Deficits and Nonfocal/Grossly Intact
Psych: Calm
[2024-05-14] MEDS: ZOVIRAX INJECTION 266 MG IV (21:24)
[2024-05-14] MEDS: FLOMAX 0.4 MG PO (21:25)
[2024-05-14] MEDS: LIPITOR 40 MG PO (21:25)
[2024-05-14 23:03] VITALS: BP 132/82
[2024-05-15] MEDS: ZOVIRAX INJECTION 266 MG IV (05:37)
--- NOTE | 2024-05-15 06:08 | PTCARENOTE ---
Patient AAO to self, place, and situation. Patient forgetful. Per patient, he has vision loss due to macular degeneration. VSS. Reddened shingles rash from right groin, right hip, right buttocks, and torso with lesions. No drainage noted from
lesions. Patient denies pain. OOB x 1 assist with walker. Right foot drop/inattention while ambulating. Patient is a high fall risk as evidenced by impulsivity, gait dysfunction, and forgetting limitations. Bed alarm on. Bed in lowest position. Call
moran and personal belongings within reach.
[2024-05-15 07:30] VITALS: BP 120/65
[2024-05-15 08:05] LABS: Hematocrit 41.4 % (39.0-52.0); Hemoglobin 14.6 g/dL (13.0-18.0); Mean Corp Hgb Conc. 35.3 g/dL (33.0-37.0); Mean Corpuscular Hgb 33.4 pg (27.0-31.0); Mean Corpuscular Volume 94.7 fL (80.0-94.0); Mean Platelet Volume 10.4 fL (7.4-10.4); Platelet Count 200 10^3/uL (130-400); Red Blood Cell Count 4.37 10^6/uL (4.70-6.10); Red Cell Dist. Width 13.7 % (11.5-14.5)
[2024-05-15] MEDS: ORETIC 12.5 MG PO (08:28)
[2024-05-15] MEDS: ASPIR LOW (ENTERIC COATED) 81 MG PO (08:28)
[2024-05-15] MEDS: TOPROL XL 25 MG PO (08:29)
[2024-05-15] MEDS: COZAAR 50 MG PO (08:29)
[2024-05-15 08:57] LABS: Blood Urea Nitrogen 47 mg/dl (9-20); Carbon Dioxide 22 mmol/L (22-30); Chloride 102 mmol/L (98-107); Estimated Creatinine Clearance 24 ml/min; Glucose 129 mg/dl (70-99); Potassium 3.7 mmol/L (3.5-5.1); Sodium 134 mmol/L (135-145); eGFR 21.34
--- NOTE | 2024-05-15 09:32 | W.PN.ID1 ---
Date of Service
Date of Service: May 15, 2024
Today's Communication
See below.
Assessment / Plan
# Disseminated herpes zoster: Right T12/L1 dermatome with lesions on upper chest, left shoulder
# VZV meningoencephalitis
# New DEIRDRE - retention and/or acyclovir nephrotoxicity
# Encephalopathy resolved
- Unvaccinated against Zoster.
- CSF 50 WBC, 83% Lymphs, protein 98.
Meningoencephalitis PCR panel: POSITIVE VZV
- New DEIRDRE. Check for urine retention (h/o BPH). Agree with checking for UA crystals, holding RAN/ARB, give IVF
- Reduce acyclovir dose further to 800mg IV q24, adjust prn base on renal function.
- Ordered renal US.
- Planning IV acyclovir (d4) x 14d through 05/26, am.
- Continue airborne isolation.
- HIV pending
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
CVA with right side weakness
HTN
CAD s/p stent
ISchemic cardiomyopathy
Afib s/p Watchman device 04/29/24
BPH
HLD
OA
Macular generation
GIOVANNA noncompliant with CPAP
Nephrolithiasis
Chief Complaint
-: Other (zoster)
Subjective / Review of Systems
C/o unable to urinate.
Vital Signs / Physical Exam
Vital Signs
Vital Signs
Temp Pulse Resp BP Pulse Ox
97.9 F 84 18 120/65 95
05/15/24 07:30 05/15/24 07:30 05/15/24 07:30 05/15/24 07:30 05/15/24 07:30
Physical Exam
Constitutional: No Acute Distress
Eyes: No Conjunctival Hemorrhage and Sclera Anicteric
Cardiovascular: Regular Rate and S1/S2
Pulmonary: Clear
Gastrointestinal: Soft, Non Tender, Non Distended and Normal Bowel Sounds
Genito-Urinary: Negative Suprapubic Tenderness or CVA Tenderness
Extremities: Negative Edema
Skin: Rash (Lesions on chest starting to crust; a few lesions on right lower abd/back darker)
Neurological: AO x 3; Negative Meningeal Signs
Objective Data
Lab Data
Lab Results
05/15/24 07:38
Estimated Creat Clear 24 ml/min 05/15/24 07:38
Total Bilirubin 0.8 mg/dl (0.2-1.3) 05/12/24 16:10
AST 33 U/L (17-59) 05/12/24 16:10
ALT 28 U/L (0-50) 05/12/24 16:10
Alkaline Phosphatase 78 U/L (38-126) 05/12/24 16:10
Most recent labs reviewed.
Micro Results:
05/13/24 16:48 CSF Culture - Preliminary
Csf No Growth After 18-24 Hours
Gram Stain - Preliminary
05/13/24 16:48 Meningitis/Encephalitis Panel (PCR) - Final
Csf
ORDERED: Meningitis Dominguez
COMMENTS: CRITICAL VALUE called to and read back verification by
[id number] on 05/14/24 at 0737 by FADY. COPY PRINTED to printer
#[id number].
Procedure Result Verified
Meningitis Panel, CSF by PCR Final 05/14/24-0604
Escherichia coli K1 Not Detected
Haemophilus influenzae Not Detected
Listeria monocytogenes Not Detected
Neisseria meningitidis Not Detected
Cytomegalovirus (CMV) Not Detected
Streptococcus agalactiae Not Detected
Streptococcus pneumoniae Not Detected
Enterovirus Not Detected
Herpes simplex virus 1 Not Detected
Herpes simplex virus 2 Not Detected
Human herpesvirus 6 Not Detected
Human parechovirus Not Detected
Varicella zoster virus DETECTED
C. neoformans/gattii Not Detected
Care Review
Plan reviewed with: Physician (Dr. Brad Choi)
--- NOTE | 2024-05-15 09:54 | CM ---
CM reviewed chart, spoke with patients to review [facility] unable to accept patient due to no beds available/ airborne precautions. [facility] CM will
continue to follow for all discharge planning needs.
Plan; additional SNF referrals sent, pending placement
--- NOTE | 2024-05-15 13:31 | W.PN.HOSP.TC ---
Addendum entered and electronically signed by Brad Choi MD 05/16/24 07:41:
Add on to diagnosis list :
Hyponatremia
Original Note:
Today's Communication/Plan
-
see note
Assessment / Plan
Assessment / Plan
1. Disseminated Varicella Zoster
VZV encephalitis
- renal function normal, will continue with acyclovir 10mg/kg q8h
- LP showed WBC 50. CSF panel of positive for VZV.
- On skin exam blisters/rash on right lower abdomen tracking along T11-T12 dermatomal region. also some on chest.
- Continue IV acyclovir x 14d through 05/26, am.
-Discussed with ID and will be holding tomorrow acyclovir dose until repeat lab in the morning resulted
2. Parox afib
- s/p watchman
- continue metoprolol succinate daily
3. TME - improved
-Possibly with active viral infection
-MRI brain without contrast neg.
-CT head without any acute abnormality
-Patient again somewhat disoriented today although answering questions appropriately. Likely effect of DEIRDRE and acyclovir side effect. will discuss with ID
4. DEIRDRE
Urinary retention
-anderson catheter ordered as bladder scan showing 700 mL urine
-Cr 2.9 today, was 1.2 yesterday
-Hold losartan/hydrochlorothiazide
-Renal bladder scan ordered
-Check UA for any crystal urea with need of IV acyclovir, dose has been adjusted by ID today
-Repeat BMP at 1500
5. GIOVANNA
- no cpap, oxygen hs
6. BPH
- maintain on flomax
7. History of CVA
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
CAD
-Continue aspirin/statin
DVT PPX - on apixaban
Total time spent : 53 mins
Anticipated Discharge: 24 - 48 hours
Subjective/Interval History
-
Date of Service: May 15, 2024
Resting comfortably in bed
having some confusion
Objective Data
-
Labs:
Laboratory Results
05/15/24 05/15/24
07:38 15:00
WBC 10.0
Hgb 14.6
Hct 41.4
Plt Count 200
Sodium 134 L Pending
Potassium 3.7 Pending
Chloride 102 Pending
Carbon Dioxide 22 Pending
BUN 47 H Pending
Creatinine 2.9 H Pending
Glucose 129 H Pending
Calcium 8.0 L Pending
Vital Signs:
Vital Signs
Temp Pulse Resp BP Pulse Ox
97.9 F 84 18 120/65 95
05/15/24 07:30 05/15/24 07:30 05/15/24 07:30 05/15/24 07:30 05/15/24 07:30
I&O
05/14/24 05/15/24 05/16/24
06:59 06:59 06:59
Intake Total 1580 / 1580 940 / 940
Output Total 600 / 600 350 / 350
Balance 980 / 980 590 / 590
Review of Systems
-
Respiratory: Reports No Symptoms
Cardiac: Reports No Symptoms
Abdomen/GI: Reports No Symptoms
Physical Exam
-
General: No Apparent Distress and Comfortable
HEENT: Negative Oxygen
Respiratory: Clear to Auscultation
Cardiac: Regular Rhythm and S1/S2; Negative Murmur or Rub
GI: Soft, Nontender and Other (Right lower abdominal quadrant vesicular rash extending to midline)
Musculoskeletal: No Edema
Neuro: Awake, Alert, Oriented, No Motor Deficits and Nonfocal/Grossly Intact
Psych: Calm
[2024-05-15] MEDS: LR 1000 IV ×2 (13:51→21:10)
[2024-05-15 14:08] LABS: Urine Albumin 2+ (Neg - Trace); Urine Bilirubin Negative (Negative); Urine Character Clear (Clear); Urine Color Yellow; Urine Glucose Negative (Negative); Urine Ketone Negative (Negative); Urine Leukocyte 1+ (Negative); Urine Nitrite Negative (Negative); Urine Occult Blood 4+ (Negative); Urine Specific Gravity 1.005 (<1.030); Urine Urobilinogen Negative (Neg - 1+)
[2024-05-15 14:44] LABS: Urine Amorphous Seen; Urine Bacteria Moderate (Negative); Urine White Cell 26-30 /HPF (0-5)
[2024-05-15 16:15] VITALS: BP 110/68
[2024-05-15 18:26] LABS: Blood Urea Nitrogen 50 mg/dl (9-20); Calcium 8.4 mg/dl (8.4-10.2); Carbon Dioxide 21 mmol/L (22-30); Chloride 103 mmol/L (98-107); Estimated Creatinine Clearance 24 ml/min; Glucose 131 mg/dl (70-99); Sodium 135 mmol/L (135-145); eGFR 21.34
[2024-05-15] MEDS: LIPITOR 40 MG PO (21:09)
[2024-05-15] MEDS: FLOMAX 0.4 MG PO (21:09)
[2024-05-15 23:32] VITALS: BP 121/79
[2024-05-16] MEDS: LR 1000 IV ×2 (05:56→11:24)
[2024-05-16 07:57] VITALS: BP 149/82
[2024-05-16 08:22] LABS: Hematocrit 41.7 % (39.0-52.0); Hemoglobin 14.7 g/dL (13.0-18.0); Mean Corp Hgb Conc. 35.3 g/dL (33.0-37.0); Mean Corpuscular Hgb 33.4 pg (27.0-31.0); Mean Corpuscular Volume 94.8 fL (80.0-94.0); Mean Platelet Volume 10.4 fL (7.4-10.4); Platelet Count 236 10^3/uL (130-400); Red Cell Dist. Width 13.7 % (11.5-14.5); White Blood Cell Count 9.9 10^3/uL (4.8-10.8)
[2024-05-16 08:49] LABS: Blood Urea Nitrogen 51 mg/dl (9-20); Calcium 8.4 mg/dl (8.4-10.2); Carbon Dioxide 23 mmol/L (22-30); Chloride 105 mmol/L (98-107); Estimated Creatinine Clearance 25 ml/min; Glucose 117 mg/dl (70-99); Sodium 139 mmol/L (135-145); eGFR 22.25
[2024-05-16] MEDS: TOPROL XL 25 MG PO (08:53)
[2024-05-16] MEDS: ASPIR LOW (ENTERIC COATED) 81 MG PO (08:53)
--- NOTE | 2024-05-16 09:43 | W.PN.ID1 ---
Date of Service
Date of Service: May 16, 2024
Today's Communication
Resume Acyclovir 800mg IV q24 (d5)
Assessment / Plan
# Disseminated herpes zoster: Right T12/L1 dermatome with lesions on upper chest, left shoulder
# VZV meningoencephalitis
# DEIRDRE - retention and/or acyclovir nephrotoxicity
# Urinary retention - anderson placed 05/15
# Encephalopathy waxing and wanes
- Unvaccinated against Zoster.
- CSF 50 WBC, 83% Lymphs, protein 98.
Meningoencephalitis PCR panel: POSITIVE VZV
- renal function stable.
- Renal US: unremarkable.
- UA + crystals, acyclovir induced.
- Continue to follow renal function and mental status closely.
- Resume Acyclovir 800mg IV q24 (d5), adjust prn base on renal function.
- Continue airborne isolation until all lesions crusted.
- HIV pending
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
CVA with right side weakness
HTN
CAD s/p stent
ISchemic cardiomyopathy
Afib s/p Watchman device 04/29/24
BPH
HLD
OA
Macular generation
GIOVANNA noncompliant with CPAP
Nephrolithiasis
Chief Complaint
-: Other (zoster)
Subjective / Review of Systems
No new complaints today.
Vital Signs / Physical Exam
Vital Signs
Vital Signs
Temp Pulse Resp BP Pulse Ox
98.0 F 81 20 149/82 94
05/16/24 07:57 05/16/24 07:57 05/16/24 07:57 05/16/24 07:57 05/16/24 07:57
Physical Exam
Constitutional: No Acute Distress
Cardiovascular: Regular Rate and S1/S2
Pulmonary: Clear
Gastrointestinal: Soft, Non Tender, Non Distended and Normal Bowel Sounds
Genito-Urinary: Anderson and Clear Urine; Negative Suprapubic Tenderness or CVA Tenderness
Extremities: Negative Edema
Skin: Rash (Vesicles on groin/back dryer, starting to crust. Chest lesions crusted. )
Neurological: Awake, Alert and Oriented (to hopsotal, self, Month of his birthday but not date.); Negative Meningeal Signs
Psychological: Calm
Objective Data
Lab Data
Lab Results
05/16/24 07:28
05/16/24 07:28
Estimated Creat Clear 25 ml/min 05/16/24 07:28
Total Bilirubin 0.8 mg/dl (0.2-1.3) 05/12/24 16:10
AST 33 U/L (17-59) 05/12/24 16:10
ALT 28 U/L (0-50) 05/12/24 16:10
Alkaline Phosphatase 78 U/L (38-126) 05/12/24 16:10
Most recent labs reviewed.
Micro Results:
05/13/24 16:48 CSF Culture - Preliminary
Csf No Growth After 48 Hours
Gram Stain - Preliminary
05/13/24 16:48 Meningitis/Encephalitis Panel (PCR) - Final
Csf
ORDERED: Meningitis Dominguez
COMMENTS: CRITICAL VALUE called to and read back verification by
[id number] on 05/14/24 at 0737 by FADY. COPY PRINTED to printer
#[id number].
Procedure Result Verified
Meningitis Panel, CSF by PCR Final 05/14/24-0604
Escherichia coli K1 Not Detected
Haemophilus influenzae Not Detected
Listeria monocytogenes Not Detected
Neisseria meningitidis Not Detected
Cytomegalovirus (CMV) Not Detected
Streptococcus agalactiae Not Detected
Streptococcus pneumoniae Not Detected
Enterovirus Not Detected
Herpes simplex virus 1 Not Detected
Herpes simplex virus 2 Not Detected
Human herpesvirus 6 Not Detected
Human parechovirus Not Detected
Varicella zoster virus DETECTED
C. neoformans/gattii Not Detected
Care Review
Plan reviewed with: Physician (Dr. Soy Choi)
[2024-05-16] MEDS: ZOVIRAX INJECTION 266 MG IV (10:00)
--- NOTE | 2024-05-16 11:19 | CM ---
Chart reviewed for d/c planning. Patient being recommended for skilled rehab at d/c. Patient needing a private/iso room for airborne precautions.
SNF referrals reviewed, [facility] bed today if patient is stable. Spouse agreeable to [facility]
CM discussed d/c w/ hospitalist, patient has newly developed renal failure and unable to d/c today. Patient will remain in hospital through the weekend.
CM will cont to follow patient's hospital progress
Plan: SNF; [facility] able to accept. CM to confirm bed availability closer to d/c
[2024-05-16 11:48] LABS: HIV Combo Negative (Negative)
[2024-05-16 13:05] VITALS: BP 139/66; PULSE 87; O2SAT 96
--- NOTE | 2024-05-16 15:14 | W.PN.HOSP.TC ---
Today's Communication/Plan
-
repeat BMP
acyclovir per ID
continue IVF
Assessment / Plan
Assessment / Plan
1. Disseminated Varicella Zoster
VZV encephalitis
- renal function normal, will continue with acyclovir 10mg/kg q8h
- LP showed WBC 50. CSF panel of positive for VZV.
- On skin exam blisters/rash on right lower abdomen tracking along T11-T12 dermatomal region. also some on chest.
- Continue IV acyclovir x 14d through 05/26, am.
-Acyclovir dose has been adjusted with new renal dysfunction
2. Parox afib
- s/p watchman
- continue metoprolol succinate daily
3. TME - improved
-Possibly with active viral infection
-MRI brain without contrast neg.
-CT head without any acute abnormality
4. DEIRDRE -ongoing
Urinary retention
-anderson catheter ordered as bladder scan showing 700 mL urine
-Cr 2.9 today, was 1.2 yesterday
-Continue Hold losartan/hydrochlorothiazide
-Renal bladder scan normal
-UA did show crystalluria
-Maintained on IVF at this point with follow-up renal function ordered
5. GIOVANNA
- no cpap, oxygen hs
6. BPH
- maintain on flomax
7. History of CVA
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
CAD
-Continue aspirin/statin
DVT PPX - on apixaban
Total time spent : 51 mins
I personally saw and examined the patient.
I have reviewed all diagnostic interpretations and treatment plans as written.
Time includes patient management by me, time spent at the patients bedside, time to review lab and imaging results, discussing patient care, documentation in the medical record, and time spent with the family or caregiver and discussing care plan
with RN/Consultants.
Anticipated Discharge: > 48 hours
Subjective/Interval History
-
Date of Service: May 16, 2024
Mentation remains stable
no new problems
Objective Data
-
Labs:
Laboratory Results
05/16/24 05/16/24
07:28 15:14
WBC 9.9
Hgb 14.7
Hct 41.7
Plt Count 236
Sodium 139 Pending
Potassium 4.0 Pending
Chloride 105 Pending
Carbon Dioxide 23 Pending
BUN 51 H Pending
Creatinine 2.8 H Pending
Glucose 117 H Pending
Calcium 8.4 Pending
Vital Signs:
Vital Signs
Temp Pulse Resp BP Pulse Ox
98.0 F 81 20 149/82 94
05/16/24 07:57 05/16/24 07:57 05/16/24 07:57 05/16/24 07:57 05/16/24 07:57
I&O
05/15/24 05/16/24 05/17/24
06:59 06:59 06:59
Intake Total 940 / 940 1720 / 1720
Output Total 350 / 350 3090 / 3090
Balance 590 / 590 -1370 / -1370
Review of Systems
-
Respiratory: Reports No Symptoms
Cardiac: Reports No Symptoms
Abdomen/GI: Reports No Symptoms
Physical Exam
-
General: No Apparent Distress and Comfortable
HEENT: Negative Oxygen
Respiratory: Clear to Auscultation
Cardiac: Regular Rhythm and S1/S2; Negative Murmur or Rub
GI: Soft, Nontender and Other (Right lower abdominal quadrant vesicular rash extending to midline)
Musculoskeletal: No Edema
Neuro: Awake, Alert, Oriented, No Motor Deficits and Nonfocal/Grossly Intact
Psych: Calm
[2024-05-16 15:17] VITALS: BP 116/69
[2024-05-16] MEDS: LIPITOR 40 MG PO (21:00)
[2024-05-16] MEDS: FLOMAX 0.4 MG PO (21:00)
[2024-05-16 23:15] VITALS: BP 166/104
[2024-05-16 23:37] VITALS: BP 163/83
[2024-05-17 07:41] LABS: Blood Urea Nitrogen 46 mg/dl (9-20); Calcium 8.7 mg/dl (8.4-10.2); Carbon Dioxide 26 mmol/L (22-30); Chloride 109 mmol/L (98-107); Estimated Creatinine Clearance 30 ml/min; Glucose 127 mg/dl (70-99); Potassium 3.8 mmol/L (3.5-5.1); Sodium 143 mmol/L (135-145); eGFR 28.18
[2024-05-17 07:54] VITALS: BP 147/84
[2024-05-17] MEDS: TOPROL XL 25 MG PO (09:01)
[2024-05-17] MEDS: ASPIR LOW (ENTERIC COATED) 81 MG PO (09:01)
[2024-05-17] MEDS: ZOVIRAX INJECTION 266 MG IV (09:02)
[2024-05-17] MEDS: NEURONTIN 100 MG PO ×3 (10:36→21:34)
--- NOTE | 2024-05-17 11:19 | W.PN.ID1 ---
Date of Service
Date of Service: May 17, 2024
Today's Communication
Acyclovir dose adjusted.
Assessment / Plan
# Disseminated herpes zoster: Right T12/L1 dermatome with lesions on upper chest, left shoulder
# VZV meningoencephalitis
# DEIRDRE - retention and/or acyclovir nephrotoxicity
# Urinary retention - anderson placed 05/15
# Encephalopathy waxing and wanes
- Unvaccinated against Zoster.
- CSF 50 WBC, 83% Lymphs, protein 98.
Meningoencephalitis PCR panel: POSITIVE VZV
- Renal US: unremarkable.
- UA + crystals, acyclovir induced.
- renal function improved today
- adjust Acyclovir to 700mg IV q12 (d6),
-Continue to follow renal function closely.
-Analgesics for herpetic neuralgia.
- Continue airborne isolation until all lesions crusted.
- HIV negative.
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
CVA with right side weakness
HTN
CAD s/p stent
ISchemic cardiomyopathy
Afib s/p Watchman device 04/29/24
BPH
HLD
OA
Macular generation
GIOVANNA noncompliant with CPAP
Nephrolithiasis
Chief Complaint
-: Other (zoster)
Subjective / Review of Systems
c/o sharp needle-like pain over right groin/flank
Vital Signs / Physical Exam
Vital Signs
Vital Signs
Temp Pulse Resp BP Pulse Ox
97.8 F 82 20 147/84 97
05/17/24 07:54 05/17/24 09:01 05/17/24 07:54 05/17/24 09:01 05/17/24 09:00
Physical Exam
Constitutional: No Acute Distress, Comfortable and Obese
Eyes: Sclera Anicteric
Cardiovascular: Regular Rate and S1/S2
Pulmonary: Clear
Gastrointestinal: Soft, Non Tender, Non Distended and Normal Bowel Sounds
Genito-Urinary: Anderson and Clear Urine
Extremities: Negative Edema
Skin: Rash (Extensive rash on right lower abd/groin to back continues to crust. Upper chest lesions crusted. )
Neurological: Awake and Alert; Negative Meningeal Signs
Objective Data
Lab Data
Lab Results
05/16/24 07:28
05/17/24 07:00
Estimated Creat Clear 30 ml/min 05/17/24 07:00
Total Bilirubin 0.8 mg/dl (0.2-1.3) 05/12/24 16:10
AST 33 U/L (17-59) 05/12/24 16:10
ALT 28 U/L (0-50) 05/12/24 16:10
Alkaline Phosphatase 78 U/L (38-126) 05/12/24 16:10
Most recent labs reviewed.
Micro Results:
05/13/24 16:48 CSF Culture - Preliminary
Csf No Growth After 72 Hours
Gram Stain - Preliminary
05/13/24 16:48 Meningitis/Encephalitis Panel (PCR) - Final
Csf
ORDERED: Meningitis Dominguez
COMMENTS: CRITICAL VALUE called to and read back verification by
[id number] on 05/14/24 at 0737 by FADY. COPY PRINTED to printer
#[id number].
Procedure Result Verified
Meningitis Panel, CSF by PCR Final 05/14/24-0604
Escherichia coli K1 Not Detected
Haemophilus influenzae Not Detected
Listeria monocytogenes Not Detected
Neisseria meningitidis Not Detected
Cytomegalovirus (CMV) Not Detected
Streptococcus agalactiae Not Detected
Streptococcus pneumoniae Not Detected
Enterovirus Not Detected
Herpes simplex virus 1 Not Detected
Herpes simplex virus 2 Not Detected
Human herpesvirus 6 Not Detected
Human parechovirus Not Detected
Varicella zoster virus DETECTED
C. neoformans/gattii Not Detected
Care Review
Plan reviewed with: Physician (Dr. Soy Choi)
--- NOTE | 2024-05-17 12:34 | W.PN.HOSP.TC ---
Today's Communication/Plan
-
reordered IVF - continue
prn Dilaudid/gabapentin for herpetic neuralgia
Assessment / Plan
Assessment / Plan
1. Disseminated Varicella Zoster
VZV encephalitis
Herpetic neuralgia
- renal function normal, will continue with acyclovir 10mg/kg q8h
- LP showed WBC 50. CSF panel of positive for VZV.
- On skin exam blisters/rash on right lower abdomen tracking along T11-T12 dermatomal region. also some on chest.
- Continue IV acyclovir x 14d through 05/26, am.
-Acyclovir dose has been adjusted with new renal dysfunction
-Patient having significant sharp stabbing pain at the shingles site. Gabapentin 100 mg 3 times daily and Dilaudid as needed ordered
2. Parox afib
- s/p watchman
- continue metoprolol succinate daily
3. TME - improved
-Possibly with active viral infection
-MRI brain without contrast neg.
-CT head without any acute abnormality
4. DEIRDRE - Improving
Urinary retention
-anderson catheter ordered as bladder scan showing 700 mL urine
-Cr 2.9 today, was 1.2 yesterday
-Continue Hold losartan/hydrochlorothiazide
-Renal bladder scan normal
-UA did show crystalluria
-Maintaine on IVF at this point with follow-up renal function ordered.
5. GIOVANNA
- no cpap, oxygen hs
6. BPH
- maintain on flomax
7. History of CVA
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
CAD
-Continue aspirin/statin
DVT PPX - on apixaban
Anticipated Discharge: > 48 hours
Subjective/Interval History
-
Date of Service: May 17, 2024
having significant pain at shingles site, describes as sharp stabbing pain
Objective Data
-
Labs:
Laboratory Results
05/17/24
07:00
Sodium 143
Potassium 3.8
Chloride 109 H
Carbon Dioxide 26
BUN 46 H
Creatinine 2.3 H
Glucose 127 H
Calcium 8.7
Vital Signs:
Vital Signs
Temp Pulse Resp BP Pulse Ox
97.8 F 82 20 147/84 97
05/17/24 07:54 05/17/24 09:01 05/17/24 07:54 05/17/24 09:01 05/17/24 09:00
I&O
05/16/24 05/17/24 05/18/24
06:59 06:59 07:59
Intake Total 1720 / 1720 960 / 960
Output Total 3090 / 3090 3750 / 3750
Balance -1370 / -1370 -2790 / -2790
Review of Systems
-
Respiratory: Reports No Symptoms
Cardiac: Reports No Symptoms
Abdomen/GI: Reports No Symptoms
Physical Exam
-
General: No Apparent Distress and Comfortable
HEENT: Negative Oxygen
Respiratory: Clear to Auscultation
Cardiac: Regular Rhythm and S1/S2; Negative Murmur or Rub
GI: Soft, Nontender and Other (Right lower abdominal quadrant vesicular rash extending to midline)
Musculoskeletal: No Edema
Neuro: Awake, Alert, Oriented, No Motor Deficits and Nonfocal/Grossly Intact
Psych: Calm
--- NOTE | 2024-05-17 12:34 | CM ---
CM reviewed chart, reviewed with Hospitalist, will remain in Hospital through weekend. Referrals placed for SNF upon discharge, [facility] to offer patient a bed, no auth required. CM will continue to follow
for all discharge planning needs.
Plan; SNF when medically stable.
[2024-05-17] MEDS: LR 1000 IV ×2 (13:37→21:32)
[2024-05-17 15:36] VITALS: BP 165/135
[2024-05-17 19:58] VITALS: BP 149/79
[2024-05-17] MEDS: ZOVIRAX INJECTION 114 MG IV (21:33)
[2024-05-17] MEDS: LIPITOR 40 MG PO (21:33)
[2024-05-17] MEDS: FLOMAX 0.4 MG PO (21:34)
[2024-05-17 23:22] VITALS: BP 163/83
[2024-05-18] MEDS: LR 1000 IV ×2 (06:00→15:24)
[2024-05-18 07:00] VITALS: BP 145/88
[2024-05-18 07:41] LABS: Blood Urea Nitrogen 36 mg/dl (9-20); Calcium 8.4 mg/dl (8.4-10.2); Carbon Dioxide 26 mmol/L (22-30); Chloride 111 mmol/L (98-107); Estimated Creatinine Clearance 37 ml/min; Glucose 111 mg/dl (70-99); Potassium 4.1 mmol/L (3.5-5.1); Sodium 143 mmol/L (135-145); eGFR 35.44
[2024-05-18] MEDS: ASPIR LOW (ENTERIC COATED) 81 MG PO (08:09)
[2024-05-18] MEDS: NEURONTIN 100 MG PO ×3 (08:10→22:15)
[2024-05-18] MEDS: TOPROL XL 25 MG PO (08:14)
[2024-05-18] MEDS: ULTRAM 50 MG PO (08:15)
--- NOTE | 2024-05-18 09:40 | W.PN.ID1 ---
Date of Service
Date of Service: May 18, 2024
Today's Communication
Continue acyclovir and airborne isolation
Assessment / Plan
# Disseminated herpes zoster: Right T12/L1 dermatome with lesions on upper chest, left shoulder
# VZV meningoencephalitis
# DEIRDRE - retention and/or acyclovir nephrotoxicity, improving
# Urinary retention - anderson placed 05/15
# Encephalopathy waxing and wanes
- Unvaccinated against Zoster.
- CSF 50 WBC, 83% Lymphs, protein 98.
Meningoencephalitis PCR panel: POSITIVE VZV
- Renal US: unremarkable.
- UA + crystals, acyclovir induced.
- renal function continues to improve
- adjust Acyclovir to 700mg IV q12 (d7),
-Continue to follow renal function closely.
-Analgesics for herpetic neuralgia.
- Continue airborne isolation until all lesions crusted.
- HIV negative.
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
CVA with right side weakness
HTN
CAD s/p stent
ISchemic cardiomyopathy
Afib s/p Watchman device 04/29/24
BPH
HLD
OA
Macular generation
GIOVANNA noncompliant with CPAP
Nephrolithiasis
Chief Complaint
-: Other (zoster)
Subjective / Review of Systems
Lucid today.
Vital Signs / Physical Exam
Vital Signs
Vital Signs
Temp Pulse Resp BP Pulse Ox
97.4 F 82 20 145/88 97
05/18/24 07:00 05/18/24 07:00 05/18/24 07:00 05/18/24 07:00 05/18/24 07:00
Physical Exam
Constitutional: No Acute Distress
Cardiovascular: Regular Rate and S1/S2
Pulmonary: Clear
Gastrointestinal: Soft, Non Tender and Non Distended
Genito-Urinary: Anderson and Clear Urine; Negative CVA Tenderness
Skin: Rash (Rash on lower abd 95% crusted, 1 vesicle on right neck)
Neurological: AO x 3
Objective Data
Lab Data
Lab Results
05/16/24 07:28
05/18/24 07:10
Estimated Creat Clear 37 ml/min 05/18/24 07:10
Total Bilirubin 0.8 mg/dl (0.2-1.3) 05/12/24 16:10
AST 33 U/L (17-59) 05/12/24 16:10
ALT 28 U/L (0-50) 05/12/24 16:10
Alkaline Phosphatase 78 U/L (38-126) 05/12/24 16:10
Most recent labs reviewed.
Micro Results:
05/13/24 16:48 CSF Culture - Final
Csf No Growth After 5 Days - Final Report
Gram Stain - Final
05/13/24 16:48 Meningitis/Encephalitis Panel (PCR) - Final
Csf
ORDERED: Meningitis Dominguez
COMMENTS: CRITICAL VALUE called to and read back verification by
[id number] on 05/14/24 at 0737 by FADY. COPY PRINTED to printer
#[id number].
Procedure Result Verified
Meningitis Panel, CSF by PCR Final 05/14/24-0604
Escherichia coli K1 Not Detected
Haemophilus influenzae Not Detected
Listeria monocytogenes Not Detected
Neisseria meningitidis Not Detected
Cytomegalovirus (CMV) Not Detected
Streptococcus agalactiae Not Detected
Streptococcus pneumoniae Not Detected
Enterovirus Not Detected
Herpes simplex virus 1 Not Detected
Herpes simplex virus 2 Not Detected
Human herpesvirus 6 Not Detected
Human parechovirus Not Detected
Varicella zoster virus DETECTED
C. neoformans/gattii Not Detected
Care Review
Plan reviewed with: Physician (Dr. Parminder Choi)
[2024-05-18] MEDS: ZOVIRAX INJECTION 114 MG IV ×2 (09:44→22:15)
--- NOTE | 2024-05-18 13:30 | W.PN.HOSP.TC ---
Today's Communication/Plan
-
see note
Assessment / Plan
Assessment / Plan
1. Disseminated Varicella Zoster
VZV encephalitis
Herpetic neuralgia
- renal function normal, will continue with acyclovir 10mg/kg q8h
- LP showed WBC 50. CSF panel of positive for VZV.
- On skin exam blisters/rash on right lower abdomen tracking along T11-T12 dermatomal region. also some on chest.
- Continue IV acyclovir x 14d through 05/26, am.
-Acyclovir dose has been adjusted with new renal dysfunction
-Maintain on tramadol/dilaudid prn .
2. Parox afib
- s/p watchman
- continue metoprolol succinate daily
3. TME - improved
-Possibly with active viral infection
-MRI brain without contrast neg.
-CT head without any acute abnormality
4. DEIRDRE - Improving
Urinary retention
-Cr 2.9 today, was 1.2 yesterday
-Continue Hold losartan/hydrochlorothiazide
-Renal bladder scan normal
-UA did show crystalluria
-renal function trending down. cr 1.9 today. continue monitoring.
-anderson cath to be removed and TOV if renal function improved tomorrow
5. GIOVANNA
- no cpap, oxygen hs
6. BPH
- maintain on flomax
7. History of CVA
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
CAD
-Continue aspirin/statin
DVT PPX - on apixaban
Anticipated Discharge: Within 24 hours
Subjective/Interval History
-
Date of Service: May 18, 2024
right side abd pain on flank
afebrile
no confusion episode
Objective Data
-
Labs:
Laboratory Results
05/18/24
07:10
Sodium 143
Potassium 4.1
Chloride 111 H
Carbon Dioxide 26
BUN 36 H
Creatinine 1.9 H
Glucose 111 H
Calcium 8.4
Vital Signs:
Vital Signs
Temp Pulse Resp BP Pulse Ox
97.4 F 82 20 145/88 97
05/18/24 07:00 05/18/24 07:00 05/18/24 07:00 05/18/24 07:00 05/18/24 07:45
I&O
05/17/24 05/18/24 05/19/24
05:59 06:59 06:59
Intake Total
Output Total
Balance
Review of Systems
-
Respiratory: Reports No Symptoms
Cardiac: Reports No Symptoms
Abdomen/GI: Reports No Symptoms
Physical Exam
-
General: No Apparent Distress and Comfortable
HEENT: Negative Oxygen
Respiratory: Clear to Auscultation
Cardiac: Regular Rhythm and S1/S2; Negative Murmur or Rub
GI: Soft, Nontender and Other (Right lower abdominal quadrant vesicular rash extending to midline)
Musculoskeletal: No Edema
Neuro: Awake, Alert, Oriented, No Motor Deficits and Nonfocal/Grossly Intact
Psych: Calm
[2024-05-18 15:00] VITALS: BP 153/84
[2024-05-18] MEDS: LIPITOR 40 MG PO (22:15)
[2024-05-18] MEDS: FLOMAX 0.4 MG PO (22:15)
[2024-05-18 23:17] VITALS: BP 148/80
[2024-05-19] MEDS: LR 1000 IV ×3 (03:17→20:18)
[2024-05-19 07:00] VITALS: BP 169/76
[2024-05-19] MEDS: ASPIR LOW (ENTERIC COATED) 81 MG PO (09:08)
[2024-05-19] MEDS: NEURONTIN 100 MG PO ×3 (09:08→22:02)
[2024-05-19] MEDS: TOPROL XL 25 MG PO (09:08)
[2024-05-19] MEDS: ZOVIRAX INJECTION 114 MG IV ×2 (09:12→22:02)
[2024-05-19 09:13] LABS: Blood Urea Nitrogen 28 mg/dl (9-20); Calcium 8.5 mg/dl (8.4-10.2); Carbon Dioxide 24 mmol/L (22-30); Chloride 112 mmol/L (98-107); Estimated Creatinine Clearance 47 ml/min; Glucose 100 mg/dl (70-99); Potassium 4.5 mmol/L (3.5-5.1); Sodium 142 mmol/L (135-145); eGFR 47.06
--- NOTE | 2024-05-19 09:53 | W.PN.HOSP.TC ---
Today's Communication/Plan
-
Discharge to short-term rehab tomorrow
Assessment / Plan
Assessment / Plan
1. Disseminated Varicella Zoster
VZV encephalitis
Herpetic neuralgia
- renal function normal, will continue with acyclovir 10mg/kg q8h
- LP showed WBC 50. CSF panel of positive for VZV.
- On skin exam blisters/rash on right lower abdomen tracking along T11-T12 dermatomal region. also some on chest.
- Continue IV acyclovir x 14d through 05/26, am.
-Acyclovir dose has been adjusted with new renal dysfunction
-Maintain on tramadol, change IV Dilaudid to oxy
2. Parox afib
- s/p watchman
- continue metoprolol succinate daily
3. TME - improved
-Possibly with active viral infection
-MRI brain without contrast neg.
-CT head without any acute abnormality
4. DEIRDRE - Improving
Urinary retention
-Cr 2.9, 1.5 today
-Continue Hold losartan/hydrochlorothiazide
-Renal bladder scan normal
-UA did show crystalluria
-Remove Greco for void trial today
5. GIOVANNA
- no cpap, oxygen hs
6. BPH
- maintain on flomax
7. History of CVA
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
8. CAD
-Continue aspirin/statin
9. Obesity due to excess calories
� Affects all aspects of care
DVT prophylaxis�Eliquis
Full code
Updated on phone 05/19
Total time spent to see the patient on the floor, examine the patient, review data and lab results, discuss treatment plan with patient, nursing staff around 50 minutes.
Physical Exam
General: Obese, no acute distress
HEENT: Normocephalic, Atraumatic, EOMI, MMM
Respiratory: Clear to Auscultation bilaterally
Cardiac: Normal S1/S2, Regular Rate and Rhythm
GI: Soft, Nontender, Nondistended, Normal Bowel Sounds
Extremities: No Clubbing, Cyanosis, or Edema
Neuro: Nonfocal/Grossly Intact
Psych: Calm, Cooperative
Derm: Vesicular rash on lower abd 95% crusted, 1 vesicle on right neck
Anticipated Discharge: Within 24 hours
Subjective/Interval History
-
Date of Service: May 19, 2024
Patient reports pain at his shingles rash. Confusion resolved. No fever, no vomiting.
Objective Data
-
Labs:
Laboratory Results
05/19/24
08:21
Sodium 142
Potassium 4.5
Chloride 112 H
Carbon Dioxide 24
BUN 28 H
Creatinine 1.5 H
Glucose 100 H
Calcium 8.5
Vital Signs:
Vital Signs
Temp Pulse Resp BP Pulse Ox
98.7 F 78 20 169/76 97
05/19/24 07:00 05/19/24 07:00 05/19/24 07:00 05/19/24 09:08 05/19/24 07:00
I&O
05/18/24 05/19/24 05/20/24
06:59 06:59 06:59
Intake Total 4338 / 4338
Output Total 2900 / 2900
Balance 1438 / 1438
--- NOTE | 2024-05-19 13:46 | W.PN.ID1 ---
Date of Service
Date of Service: May 19, 2024
Today's Communication
See below.
Assessment / Plan
# Disseminated herpes zoster: Right T12/L1 dermatome with lesions on upper chest, left shoulder
# VZV meningoencephalitis
# DEIRDRE - retention and/or acyclovir nephrotoxicity, improving
# Urinary retention - anderson placed 05/15
# Encephalopathy resolved
- Unvaccinated against Zoster.
- CSF 50 WBC, 83% Lymphs, protein 98.
Meningoencephalitis PCR panel: POSITIVE VZV
- HIV negative.
- Renal US: unremarkable.
- UA + crystals, acyclovir induced.
- renal function continues to improve
-Continue to follow renal function closely.
-Voiding trial.
- Continue Acyclovir to 700mg IV q12 (d8)
At time of dc, transition to po valacyclovir through 05/25. Will adjust dose based on renal function.
- continue -Analgesics for herpetic neuralgia.
- dc airborne isolation
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
CVA with right side weakness
HTN
CAD s/p stent
ISchemic cardiomyopathy
Afib s/p Watchman device 04/29/24
BPH
HLD
OA
Macular generation
GIOVANNA noncompliant with CPAP
Nephrolithiasis
Chief Complaint
-: Other (zoster)
Subjective / Review of Systems
Feels well. Intermittent sharp pains over shingles.
Updated at bedside.
Vital Signs / Physical Exam
Vital Signs
Vital Signs
Temp Pulse Resp BP Pulse Ox
98.7 F 78 20 169/76 97
05/19/24 07:00 05/19/24 07:00 05/19/24 07:00 05/19/24 09:08 05/19/24 07:00
Physical Exam
Constitutional: No Acute Distress and Comfortable
Pulmonary: Clear
Gastrointestinal: Soft, Non Tender, Non Distended and Normal Bowel Sounds
Genito-Urinary: Anderson and Clear Urine
Extremities: Negative Edema
Skin: Rash (All lesions crusted/dry. Right neck pinpoint folliculitis, not vesicular. )
Neurological: AO x 3
Objective Data
Lab Data
Lab Results
05/16/24 07:28
05/19/24 08:21
Estimated Creat Clear 47 ml/min 05/19/24 08:21
Total Bilirubin 0.8 mg/dl (0.2-1.3) 05/12/24 16:10
AST 33 U/L (17-59) 05/12/24 16:10
ALT 28 U/L (0-50) 05/12/24 16:10
Alkaline Phosphatase 78 U/L (38-126) 05/12/24 16:10
Most recent labs reviewed.
Micro Results:
05/13/24 16:48 CSF Culture - Final
Csf No Growth After 5 Days - Final Report
Gram Stain - Final
05/13/24 16:48 Meningitis/Encephalitis Panel (PCR) - Final
Csf
ORDERED: Meningitis Dominguez
COMMENTS: CRITICAL VALUE called to and read back verification by
[id number] on 05/14/24 at 0737 by FADY. COPY PRINTED to printer
#[id number].
Procedure Result Verified
Meningitis Panel, CSF by PCR Final 05/14/24-0604
Escherichia coli K1 Not Detected
Haemophilus influenzae Not Detected
Listeria monocytogenes Not Detected
Neisseria meningitidis Not Detected
Cytomegalovirus (CMV) Not Detected
Streptococcus agalactiae Not Detected
Streptococcus pneumoniae Not Detected
Enterovirus Not Detected
Herpes simplex virus 1 Not Detected
Herpes simplex virus 2 Not Detected
Human herpesvirus 6 Not Detected
Human parechovirus Not Detected
Varicella zoster virus DETECTED
C. neoformans/gattii Not Detected
Care Review
Plan reviewed with: Physician (Dr. Violet Siddiqi)
[2024-05-19 14:12] VITALS: BP 136/65; PULSE 82
--- NOTE | 2024-05-19 14:46 | CM ---
CM reviewed chart, per Hospitalist, plan for discharge tomorrow, no longer on airborne precautions. CM spoke with patients , agreeable to [facility], will provide transportation. IMM verbally reviewed with , placed in chart.
inquiring about POA paperwork, will place in patients chart. CM will continue to follow for all discharge planning needs.
Plan; [facility], to transport, 05/20/24
[facility]
Report: [phone]
[2024-05-19 15:00] VITALS: BP 139/84
[2024-05-19] MEDS: LR IV (19:08)
[2024-05-19] MEDS: FLOMAX 0.4 MG PO (22:02)
[2024-05-19] MEDS: LIPITOR 40 MG PO (22:02)
[2024-05-19 23:06] VITALS: BP 127/69
[2024-05-20] MEDS: ULTRAM 50 MG PO (06:12)
[2024-05-20] MEDS: LR 1000 IV (06:12)
[2024-05-20 07:00] VITALS: BP 133/80
[2024-05-20 08:00] LABS: Hematocrit 38.7 % (39.0-52.0); Hemoglobin 12.9 g/dL (13.0-18.0); Mean Corp Hgb Conc. 33.3 g/dL (33.0-37.0); Mean Corpuscular Hgb 32.7 pg (27.0-31.0); Mean Platelet Volume 10.2 fL (7.4-10.4); Platelet Count 309 10^3/uL (130-400); Red Blood Cell Count 3.95 10^6/uL (4.70-6.10); Red Cell Dist. Width 14.2 % (11.5-14.5)
[2024-05-20] MEDS: ASPIR LOW (ENTERIC COATED) 81 MG PO (08:35)
[2024-05-20] MEDS: NEURONTIN 100 MG PO (08:35)
[2024-05-20] MEDS: TOPROL XL 25 MG PO (08:35)
[2024-05-20 08:47] LABS: Magnesium 1.7 mg/dl (1.6-2.3)
--- NOTE | 2024-05-20 09:06 | W.PN.HOSP.TC ---
Today's Communication/Plan
-
Cleared by ID for discharge to rehab today
Assessment / Plan
Assessment / Plan
1. Disseminated Varicella Zoster
VZV encephalitis
Herpetic neuralgia
- renal function normal, will continue with acyclovir 10mg/kg q8h
- LP showed WBC 50. CSF panel of positive for VZV.
- On skin exam blisters/rash on right lower abdomen tracking along T11-T12 dermatomal region. also some on chest.
- Resolving on IV acyclovir. Acyclovir dose has been adjusted with new renal dysfunction
-Cleared by ID for discharge on Valacyclovir 1 g every 12 hours through 05/25
�Will discharge on tramadol and gabapentin for pain relief
2. Parox afib
- s/p watchman
- continue metoprolol succinate daily
3. TME - improved
-Possibly with active viral infection
-MRI brain without contrast neg.
-CT head without any acute abnormality
4. DEIRDRE - Improving
Urinary retention
-Cr 2.9, 1.5 today
-Holding losartan/hydrochlorothiazide.
-Renal bladder scan normal
-UA did show crystalluria
-Greco removed 05/19, patient has been voiding
5. GIOVANNA
- no cpap, oxygen hs
6. BPH
- maintain on flomax
7. History of CVA
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
8. CAD
-Continue aspirin/statin
9. Obesity due to excess calories
� Affects all aspects of care
10. Essential hypertension
Losartan/hydrochlorothiazide discontinued secondary to renal insufficiency
Will discharge on amlodipine 5 mg daily
DVT prophylaxis�Eliquis
Full code
Updated on phone 05/19
Physical Exam
General: Obese, no acute distress
HEENT: Normocephalic, Atraumatic, EOMI, MMM
Respiratory: Clear to Auscultation bilaterally
Cardiac: Normal S1/S2, Regular Rate and Rhythm
GI: Soft, Nontender, Nondistended, Normal Bowel Sounds
Extremities: No Clubbing, Cyanosis, or Edema
Neuro: Nonfocal/Grossly Intact
Psych: Calm, Cooperative
Derm: Vesicular rash on lower abd 95% crusted, 1 vesicle on right neck
Anticipated Discharge: Today
Subjective/Interval History
-
Date of Service: May 20, 2024
Patient complains of pain from his shingles rash. Angus was removed yesterday, he has been able to void. No chest pain, no vomiting. No shortness of breath.
Objective Data
-
Labs:
Laboratory Results
05/20/24
06:27
WBC 11.0 H
Hgb 12.9 L
Hct 38.7 L
Plt Count 309 D
Vital Signs:
Vital Signs
Temp Pulse Resp BP Pulse Ox
98.1 F 60 22 133/80 94
05/20/24 07:00 05/20/24 07:00 05/20/24 07:00 05/20/24 07:00 05/20/24 07:00
I&O
05/19/24 05/20/24 05/21/24
06:59 06:59 06:59
Intake Total 4338 / 4338 1844 / 1844
Output Total 2900 / 2900 2300 / 2300
Balance 1438 / 1438 -456 / -456
[2024-05-20] MEDS: ZOVIRAX INJECTION 114 MG IV (09:11)
[2024-05-20 10:07] LABS: Blood Urea Nitrogen 23 mg/dl (9-20); Calcium 8.5 mg/dl (8.4-10.2); Carbon Dioxide 26 mmol/L (22-30); Chloride 109 mmol/L (98-107); Estimated Creatinine Clearance 47 ml/min; Glucose 100 mg/dl (70-99); Potassium 4.6 mmol/L (3.5-5.1); Sodium 143 mmol/L (135-145); eGFR 47.06
--- NOTE | 2024-05-20 11:06 | W.PN.ID1 ---
Date of Service
Date of Service: May 20, 2024
Today's Communication
- Continue Acyclovir to 700mg IV q12 (d9)
- At time of dc, transition to po valacyclovir 1000mg po q12 through 05/25.
Assessment / Plan
# Disseminated herpes zoster: Right T12/L1 dermatome with lesions on upper chest, left shoulder
# VZV meningoencephalitis
# DEIRDRE - retention and/or acyclovir nephrotoxicity, improving
# s/p Urinary retention - anderson placed 05/15, dc'd 05/19
# Encephalopathy resolved
- Unvaccinated against Zoster.
- CSF 50 WBC, 83% Lymphs, protein 98.
Meningoencephalitis PCR panel: POSITIVE VZV
- HIV negative.
- Renal US: unremarkable.
- UA + crystals, acyclovir induced.
- renal function continues to improve
- Continue Acyclovir to 700mg IV q12 (d9)
- At time of dc, transition to po valacyclovir 1000mg po q12 through 05/25.
- For dc to SNF rehab.
# Conditions [employer]IC
CVA with right side weakness
HTN
CAD s/p stent
ISchemic cardiomyopathy
Afib s/p Watchman device 04/29/24
BPH
HLD
OA
Macular generation
GIOVANNA noncompliant with CPAP
Nephrolithiasis
Chief Complaint
-: Other (zoster)
Subjective / Review of Systems
Feels well. Able to void.
Vital Signs / Physical Exam
Vital Signs
Vital Signs
Temp Pulse Resp BP Pulse Ox
98.1 F 60 22 133/80 94
05/20/24 07:00 05/20/24 07:00 05/20/24 07:00 05/20/24 07:00 05/20/24 07:00
Physical Exam
Constitutional: No Acute Distress and Comfortable
Pulmonary: Clear
Gastrointestinal: Soft, Non Tender and Non Distended
Skin: Rash (all lesions crusted)
Neurological: AO x 3
Objective Data
Lab Data
Lab Results
05/20/24 06:27
05/20/24 09:45
Estimated Creat Clear 47 ml/min 05/20/24 09:45
Total Bilirubin 0.8 mg/dl (0.2-1.3) 05/12/24 16:10
AST 33 U/L (17-59) 05/12/24 16:10
ALT 28 U/L (0-50) 05/12/24 16:10
Alkaline Phosphatase 78 U/L (38-126) 05/12/24 16:10
Most recent labs reviewed.
Micro Results:
05/13/24 16:48 CSF Culture - Final
Csf No Growth After 5 Days - Final Report
Gram Stain - Final
05/13/24 16:48 Meningitis/Encephalitis Panel (PCR) - Final
Csf
ORDERED: Meningitis Dominguez
COMMENTS: CRITICAL VALUE called to and read back verification by
[id number] on 05/14/24 at 0737 by FADY. COPY PRINTED to printer
#[id number].
Procedure Result Verified
Meningitis Panel, CSF by PCR Final 05/14/24-0604
Escherichia coli K1 Not Detected
Haemophilus influenzae Not Detected
Listeria monocytogenes Not Detected
Neisseria meningitidis Not Detected
Cytomegalovirus (CMV) Not Detected
Streptococcus agalactiae Not Detected
Streptococcus pneumoniae Not Detected
Enterovirus Not Detected
Herpes simplex virus 1 Not Detected
Herpes simplex virus 2 Not Detected
Human herpesvirus 6 Not Detected
Human parechovirus Not Detected
Varicella zoster virus DETECTED
C. neoformans/gattii Not Detected
Care Review
Plan reviewed with: Physician (Dr. Violet Siddiqi)
--- NOTE | 2024-05-20 11:16 | W.DCSUMMARY ---
Discharge Summary
Discharge Data
Date of Admission: 05/12/24
Date of Discharge: 05/20/24
-
Pending Results: No
Hospital Course
Discharge diagnosis:
Disseminated varicella-zoster
Encephalitis
Herpetic neuralgia
Acute toxic metabolic encephalopathy
Acute urinary retention status post Greco
Benign prostatic hypertrophy
Acute kidney injury
Essential hypertension
Obstructive sleep apnea
Paroxysmal atrial fibrillation
History of stroke
Coronary artery disease
Obesity due to excess calories
Consults: ID
Procedures:
05/13/2024 lumbar puncture
Hospital course:
78-year-old male with history of CVA, CAD, and atrial fibrillation status post recent Watchman device placement on April 29, 2024 who presented to the ER with new onset confusion and rash. Patient was seen in conjunction with ID. He was found
to have herpetic neuralgia, with disseminated varicella-zoster. He had a lumbar puncture done, which confirmed VZV encephalitis. Patient was treated with IV acyclovir. His mentation improved, and returned to baseline.
Patient's hospital course was complicated by acute kidney injury secondary to obstructive uropathy. Patient's hydrochlorothiazide and losartan were held. He had a Greco inserted. His creatinine was as high as 2.9, and improved to 1.5. His Greco
was removed, and he was able to void. His creatinine was 1.5 on the day of discharge, his baseline is 1.3. He is continued on Flomax.
Patient's hydrochlorothiazide and losartan were permanently discontinued. He was discharged on amlodipine 5 mg daily for his hypertension.
Patient is medically stable and cleared by ID for discharge. ID recommends valacyclovir 1 g every 12 hours through 05/25/2024. He can continue tramadol and gabapentin for herpetic neuralgia. He is discharged to short-term rehab. He needs to
follow-up with his primary care doctor 1 week after he leaves rehab.
Disposition: Short-term rehab
Discharge planning: Required 41 minutes
Discharge Plan
-
Patient Disposition: Senior Care/SNF
Discharge Diagnosis/Procedures: Disseminated varicella-zoster, varicella-zoster encephalitis, herpetic neuralgia, urinary retention, acute kidney injury, paroxysmal atrial fibrillation
Condition: Fair
Diet: Low Fat, Low Cholesterol and Low Sodium
Activity: As tolerated
Activity Restrictions/Additional Instructions:
Take valacyclovir 1000mg twice daily through 05/25.
Follow-up with your primary care doctor 1 week after you leave rehab.
Referrals:
Johnnie Castillo MD [Family Provider] - in one week
Prescriptions:
New
acetaminophen 325 mg Tablet
650 mg PO Q4HPRN PRN (Reason: mild pain/LUNDY/temp> 100.4F) Qty: 0 0RF
amlodipine 5 mg Tablet
5 mg PO DAILY Qty: 0 0RF
tramadol 50 mg Tablet
50 mg PO Q6HPRN PRN (Reason: moderate pain) Qty: 10 0RF
gabapentin 100 mg Capsule
200 mg PO TID Qty: 0 0RF
valacyclovir 1 gram tablet
1,000 mg PO BID 6 Days Qty: 12 0RF
Continued
nitroglycerin 0.4 MG tablet, sublingual
0.4 mg sublingual [id number] PRN (Reason: chest pain) Qty: 25 2RF
metoprolol succinate 25 MG tablet extended release 24 hr
25 mg PO DAILY Qty: 0
tamsulosin 0.4 MG capsule
0.4 mg PO HS
aspirin 81 MG tablet,delayed release (DR/EC)
81 mg PO DAILY 0RF
Eliquis 5 MG tablet
5 mg PO BID Qty: 1 0RF
omega 9-ids-ede-fish oil [Fish Oil] 1,000 (120-180) mg Capsule
2 cap PO DAILY
atorvastatin 40 MG tablet
40 mg PO HS
therapeutic multivitamin Tablet
1 tab PO DAILY
Discontinued
losartan 50 MG tablet
50 mg PO DAILY Qty: 90 3RF
hydrochlorothiazide 12.5 mg tablet
12.5 mg PO DAILY
Discharge Orders:
Discharge Patient (As Directed); Ordered 05/20/24
Ordered By: Arthur Siddiqi
Discharge Date and Time
Discharge Date/Time: 05/20/24 14:07
Print Language: YAKUT
--- NOTE | 2024-05-20 11:20 | CM ---
Chart reviewed. Plan is for patient to d/c today to [facility] for skilled [facility].
[facility]
Report: [phone]

Plan; [facility] today, to transport
[2024-05-20] MEDS: NORVASC 5 MG PO (11:50)
[2024-05-20 12:11] VITALS: BP 151/64
== END 2024-05-20 14:07 | DRG 98 ==
LOC: 4 WEST ACU 20:37
PROVIDERS: Hospitalist; Radiology Vascular & Interventional Radiology; Student in an Organized Health Care Education/Training Program; ADMITTING PHYSICIAN Internal Medicine; ATTENDING PHYSICIAN Family Medicine; CONSULT PHYSICIAN Internal Medicine Infectious Disease; EMERGENCY PHYSICIAN Emergency Medicine; FAMILY PHYSICIAN Family Medicine
PROC: 009Y3ZX Drainage of Lumbar Spinal Cord, Percutaneous Approach, Diagnostic (ICD-10-PCS; 2024-05-13)
PROC: B01B1ZZ Fluoroscopy of Spinal Cord using Low Osmolar Contrast (ICD-10-PCS; 2024-05-13)
DX: B01.11 Varicella encephalitis and encephalomyelitis (principal); B02.7 Disseminated zoster; N13.8 Other obstructive and reflux uropathy; N17.9 Acute kidney failure, unspecified; E87.1 Hypo-osmolality and hyponatremia; M79.2 Neuralgia and neuritis, unspecified; R33.9 Retention of urine, unspecified; N40.1 Benign prostatic hyperplasia with lower urinary tract symptoms; I10 Essential (primary) hypertension; G47.33 Obstructive sleep apnea (adult) (pediatric); I48.0 Paroxysmal atrial fibrillation; Z86.73 Personal history of transient ischemic attack (TIA), and cerebral infarction without residual deficits; I25.10 Atherosclerotic heart disease of native coronary artery without angina pectoris; E66.09 Other obesity due to excess calories; Z68.35 Body mass index [BMI] 35.0-35.9, adult; Z79.01 Long term (current) use of anticoagulants; Z95.818 Presence of other cardiac implants and grafts; Z95.5 Presence of coronary angioplasty implant and graft; G47.30 Sleep apnea, unspecified; E78.00 Pure hypercholesterolemia, unspecified; K21.9 Gastro-esophageal reflux disease without esophagitis; Z91.199 Patient's noncompliance with other medical treatment and regimen due to unspecified reason; Z96.643 Presence of artificial hip joint, bilateral; Z87.891 Personal history of nicotine dependence; Z79.82 Long term (current) use of aspirin; I25.5 Ischemic cardiomyopathy; Z98.1 Arthrodesis status; Z66 Do not resuscitate; I25.2 Old myocardial infarction; Z90.49 Acquired absence of other specified parts of digestive tract
CPT/HCPCS: 62328; 70450; 70551; 76770; 80048; 80053; 81003; 81015; 82945; 83735; 84157; 85025; 85027; 87015; 87070; 87205; 87389; 87483; 89051; 93005; 96365; 97116; 97162; 97167; 97530; 99285

== ENCOUNTER → 2024-07-09 12:44 | Outpatient (REF) | payer MEDICARE, SELFPAY | LOC: RAD 12:44 | PROVIDERS: ATTENDING PHYSICIAN Family Medicine | DX: R10.31 Right lower quadrant pain (principal) | CPT/HCPCS: 74177; Q9967 ==

== ENCOUNTER → 2024-07-24 09:45 | Outpatient (REF) | payer MEDICARE, SELFPAY | LOC: SDSPAT 09:45 | PROVIDERS: ATTENDING PHYSICIAN Internal Medicine Cardiovascular Disease; FAMILY PHYSICIAN Family Medicine; OTHER PHYSICIAN Internal Medicine Cardiovascular Disease | DX: I48.91 Unspecified atrial fibrillation (principal) | CPT/HCPCS: 93005 ==

== ENCOUNTER 2024-07-31 06:51 | Day surgery (SDC) | payer MEDICARE, SELFPAY ==
[2024-07-24 10:22] VITALS: BMI 33.9
--- NOTE | 2024-07-24 11:05 | HPS.HSE ---
Family Physician
-
Family Physician: NO INTERVIEW UNKNOWN
Chief Complaint
-
Paroxysmal atrial fibrillation.
History of Present Illness
The patient is an 79 year old male presenting today for paroxysmal atrial fibrillation. The patient reports he is relatively asymptomatic despite this diagnosis. He is on current pharmacological therapy with Metoprolol Succinate. He has
been compliant with Eliquis for oral anticoagulation. He was noted to be a significant fall risk due to his prior left hemispheric CVA which left him with a residual gait disturbance and balance difficulties. He also noted previously that Eliquis is
rather expensive and he is unable to afford this medication due to his current financial state. Given his high risk for thromboembolic events as well bleeding events while remaining on Eliquis, he did undergo a Watchman implant on 04/29/2024. He is
3 months post-Watchman and returns today in preparation for his transesophageal echocardiogram to assess the overall stability of his device. He denies any current complaints today such as chest pain, shortness of breath at rest, nausea, vomiting,
diarrhea, lightheadedness, dizziness, cough, sore throat, or fever.
Medical History
Past Medical History
Past Medical History: Reports Other
Additional Past Medical History:
1. Paroxysmal atrial fibrillation, status post Watchman implant 04/2024; pharmacological therapy with Metoprolol Succinate and oral anticoagulation with Eliquis.
2. PVCs.
3. First degree AV block.
4. Hypertension.
5. Hyperlipidemia.
6. Coronary artery disease, status post PCI with drug-eluting stent to RCA 2016.
7. Mild valvular disease.
8. Obstructive sleep apnea, noncompliant with device.
9. CVA, left hemispheric, with right-sided deficit including weakness, balance, and gait disturbance.
10. GERD.
11. Nephrolithiasis, asymptomatic.
12. Right renal cysts.
13. Osteoarthritis, status post bilateral total hip arthroplasty.
14. BPH with history of urinary retention.
15. Macular degeneration.
16. Disseminated herpes zoster with associated VZV meningoencephalitis, 05/2024, treated with Acyclovir.
17. Postherpatic neuralgia, treatment ongoing.
18. Obesity, BMI 33.8.
19. Remote history of tobacco abuse.
Past Surgical History: Reports Other
Additional Past Surgical History:
1. Watchman implant.
2. PCI with drug-eluting stent to RCA.
3. Right total hip arthroplasty.
4. Left total hip arthroplasty.
5. Appendectomy.
6. Right inguinal hernia repair.
Social History
Tobacco: Former Smoker (He is a former 1 pack per day cigarette smoker who quit tobacco remotely. )
Alcohol: None
Personal:
Living: Other (He lives with his in a split level home. )
Family History
Family History: Not pertinent
Allergies / Home Medications
Allergy/Medication List:
Home medications:
1. Aspirin 81 mg p.o. daily.
2. Atorvastatin 40 mg p.o. at bedtime.
3. Eliquis 5 mg p.o. twice a day.
4. Hydrochlorothiazide 12.5 mg p.o. daily.
5. Losartan 50 mg p.o. daily.
6. Metoprolol succinate 25 mg p.o. daily.
7. Nitroglycerin 0.4 mg sublingual every 5 minutes (max of 3 doses).
8. Tamsulosin 0.4 mg p.o. at bedtime.
9. [place] 3/fish oil 2 capsules p.o. daily.
10. Multivitamin 1 tablet p.o. daily.
Allergies: Procaine.
Review of Systems
-
A 12 point ROS was completed and negative except as noted: Yes
Physical Exam
Vital Signs
Blood pressure 141/70. Heart rate 67. Respirations 18. Pulse ox 96% on room air.
Height 5 feet, 7 inches. Weight 98 kg. BMI 33.8.
Physical Exam
General: Well Developed, Well Nourished and No Apparent Distress
HEENT: NormoCephalic, Moist mucous membranes, Atraumatic and PERRLA
Respiratory: Clear
Cardiac: Regular Rhythm (with occasional ectopy. )
GI: Soft, Non Tender, Non Distended and Other (Obese. )
Musculoskeletal: No Edema and Other (The patient presents in a wheelchair. He does ambulate with a single point cane. )
Skin: Warm and Dry
Neuro: AO x 3 and Nonfocal/grossly intact
Laboratory Results
-
EKG 07/24/2024: Sinus rhythm with first degree AV block and occasional PVCs. Low voltage QRS.
Transesophageal echocardiogram 04/29/2024: Overall left ventricular function appears normal with estimated ejection fraction of 55 to 60%. Limited wall motion analysis. Trace mitral regurgitation and mild tricuspid regurgitation. No evidence of
thrombus in left atrial appendage. Post-procedure Watchman device appears well-seated in the left atrial appendage. No evidence of leak around device by color-flow Doppler. No pericardial effusion seen.
Impression/Plan
-
IMPRESSION/PLAN:
1. Paroxysmal atrial fibrillation: The patient is 3 months post-Watchman and will now undergo a transesophageal echocardiogram to assess the stability of his device. This will take place on 07/31/[address] Clovis Hardin. The benefits and
risks of the procedure have been explained to the patient. The patient understands these risks and wishes to proceed. Should his Watchman device be well seated without significant leaks, he likely will be taken off Eliquis. He would continue a daily
baby Aspirin indefinitely.
== END 2024-07-31 09:30 | disposition home or self-care (01) ==
LOC: CATH 06:51
PROVIDERS: ATTENDING PHYSICIAN Internal Medicine Cardiovascular Disease; FAMILY PHYSICIAN Family Medicine; OTHER PHYSICIAN Internal Medicine Cardiovascular Disease
DX: Z45.09 Encounter for adjustment and management of other cardiac device (principal); I48.0 Paroxysmal atrial fibrillation; I44.0 Atrioventricular block, first degree; I10 Essential (primary) hypertension; E78.5 Hyperlipidemia, unspecified; I25.10 Atherosclerotic heart disease of native coronary artery without angina pectoris; Z95.5 Presence of coronary angioplasty implant and graft; G47.33 Obstructive sleep apnea (adult) (pediatric); Z86.73 Personal history of transient ischemic attack (TIA), and cerebral infarction without residual deficits; K21.9 Gastro-esophageal reflux disease without esophagitis; M19.90 Unspecified osteoarthritis, unspecified site; N40.0 Benign prostatic hyperplasia without lower urinary tract symptoms; E66.9 Obesity, unspecified; Z68.33 Body mass index [BMI] 33.0-33.9, adult; Z87.891 Personal history of nicotine dependence; Z79.82 Long term (current) use of aspirin; Z79.01 Long term (current) use of anticoagulants
CPT/HCPCS: 93312; 93320; 93325